=== PATIENT | male | born 1985 | race Caucasian/White ===

== ENCOUNTER 2016-12-08 05:45 | Day surgery (SDC) | payer BC ==
[2016-12-07 09:52] LABS: ABSOLUTE BASOPHILS # (AUTO) 0.1 10^3/uL (0.0-0.2); ABSOLUTE EOSINOPHILS # (AUTO) 0.2 10^3/uL (0.0-0.6); ABSOLUTE LYMPHOCYTES (AUTO) 1.9 10^3/uL (0.5-4.7); ABSOLUTE MONOCYTES (AUTO) 0.5 10^3/uL (0.1-1.4); ABSOLUTE NEUT (AUTO) 6.3 10^3/uL (1.7-8.2); BASOPHILS % (AUTO) 0.7 % (0-2); EOSINOPHILS % (AUTO) 2.5 % (0-6); HEMATOCRIT 42.4 % (37.9-51.0); HEMOGLOBIN 14.5 g/dL (13.5-17.0); HGB HCT DIFFERENCE 1.1; LYMPHOCYTES % (AUTO) 21.3 % (13-45); MEAN CORPUSCULAR HGB CONC 34.1 g/dL (32.0-36.0); MEAN CORPUSCULAR VOLUME 82 fl (80-97); MONOCYTES % (AUTO) 5.9 % (3-13); RED BLOOD COUNT 5.17 10^6/uL (4.35-5.55); RED CELL DISTRIBUTION WIDTH 14.3 % (11.5-14.0); SEGMENTED NEUTROPHILS % (AUTO) 69.6 % (42-78)
[2016-12-07 10:02] LABS: APPEARANCE,URINE CLEAR; BILIRUBIN,URINE NEGATIVE (NEGATIVE); GLUCOSE, URINE NEGATIVE (NEGATIVE); KETONES,URINE NEGATIVE (NEGATIVE); LEUKOCYTE ESTERASE,URINE NEGATIVE (NEGATIVE); NITRITE,URINE NEGATIVE (NEGATIVE); PROTEIN,URINE NEGATIVE (NEGATIVE); URINE SPECIFIC GRAVITY 1.023; UROBILINOGEN,URINE NEGATIVE mg/dL (<2.0)
[2016-12-07 10:11] LABS: ANION GAP 11 (5-19); BLOOD UREA NITROGEN 16 mg/dL (7-20); CALCIUM 9.9 mg/dL (8.4-10.2); CARBON DIOXIDE 27 mmol/L (22-30); CHLORIDE 104 mmol/L (98-107); GLUCOSE 180 mg/dL (75-110); POTASSIUM 4.2 mmol/L (3.6-5.0); SODIUM 142.4 mmol/L (137-145)
--- NOTE | 2016-12-07 10:46 | EKG REPORT ---
SEVERITY:- ABNORMAL ECG - SINUS RHYTHM IVCD, CONSIDER ATYPICAL RBBB : Confirmed by: Jarad Gotti 07-Dec-2016 10:46:06
[~2016-12-08 05:45] MED LIST: BETAMET ACET/BETAMET NA INJ 6 MG/1 ML ID PRN; CEFAZOLIN 2 GM/D5W RTU 2 GM/50 ML RTUPB IV PRN; CEFAZOLIN INJ 1 GM VIAL IV PRN; LACTATED RINGERS 1000 ML IV PRN; LIDOCAINE 0.5% INJ-PF (5 MG/ML) 50 ML SDV SUBCUT PRN
[2016-12-08] MEDS ORDERED: BUPIVACAINE HCL 0.5 % INJ/PF 30 ML SDV ONE (06:44)
[2016-12-08] MEDS ORDERED: LIDOCAINE 1% INJ-PF (10 MG/ML) 30 ML SDV ONE (07:18)
[2016-12-08] MEDS ORDERED: KETAMINE HCL INJ 500 MG/10 ML VIAL ONE (07:32)
[2016-12-08] MEDS ORDERED: FENTANYL CITRATE INJ/PF 100 MCG/2 ML AMPUL ONE (07:32)
[2016-12-08] MEDS ORDERED: MIDAZOLAM 2 MG/2 ML INJ ONE (07:32)
[2016-12-08] MEDS ORDERED: PROPOFOL INJ 200 MG/20 ML VIAL IV ONE (07:33)
[2016-12-08] MEDS ORDERED: OXYCODONE-ACETAMINOPHEN 5-325 MG TABLET PO PRN (08:28)
[2016-12-08] MEDS ORDERED: ONDANSETRON HCL INJ/PF 4 MG/2 ML SDV IV PRN (08:28)
--- NOTE | 2016-12-08 08:28 | Operative Report ---
Operative Report DATE OF SURGERY: 12/08/16 PREOPERATIVE DIAGNOSIS: Bilateral Carpal Tunnel Syndrome POSTOPERATIVE DIAGNOSIS: Same OPERATION: Left Endoscopic Carpal Tunnel Release, Right Carpal Tunnel Injection SURGEON: DEBBY GARCIA ANESTHESIA: LMAC COMPLICATIONS: None ESTIMATED BLOOD LOSS: Minimal PROCEDURE: Indication for above procedure: 31-year-old male with complaints of numbness and tingling in bilateral upper extremities. His neurodiagnostic testing demonstrating bilateral carpal tunnel syndrome. He followed up at my office at which point we discussed treatment options and the joint decision was made to proceed with left carpal tunnel release with right carpal tunnel injection. Risks and benefits were explained to the patient who verbalized understanding consented for the procedure. Procedure In Detail: Patient was seen and evaluated in the preoperative holding area. The LEFT upper extremity was initialized and marked. Patient received Ancef IV for bacterial prophylaxis. Patient was taken back to the operative room where transferred operative table. Patient was then placed under MAC anesthesia. Once adequately anesthetized, a nonsterile tourniquet was placed on the upper extremity. A surgical team debriefing was performed ensuring all instrumentation was available, the surgical procedure was discussed with possible concerns reviewed. Skin was prepped with alcohol a 50:50 10 mL mixture of 1% lidocaine and 0.5% Marcaine plain was injected locally and w/in carpal canal. The upper extremity was prepped with chlorhexidine and alcohol and draped in a sterile fashion. A timeout was done identifying correct patient, procedure and extremity everyone in attendance agree with this and verbalized no concerns.The extremity was then exsanguinated the tourniquet was inflated to 250 mmHg. A transverse skin incision was made just proximal to the wrist flexion crease ulnar to the palmaris longus. Blunt dissection was performed down to the palmaris longus tendon which was retracted radially. Deep to the palmaris longus tendon was the volar carpal ligament this was incised identifying the median nerve deep. With the use of a Grygla elevator any soft tissue was freed from the undersurface of the distal transverse carpal ligament. The hook of hamate was identified ulnarly. The ConMed cannulas were then introduced beginning with #1 progressing to a #3 gently dilating the carpal canal. I then introduced the scope within the cannula and identified transverse carpal ligament ensuring the median nerve was not visualized within the cannula. I triangulated distally with a 25-gauge needle identifying the distal aspect of the transverse carpal ligament, to ensure protection of the superficial palmar arch. The arthroscopic knife was used to incise the transverse carpal ligament under direct visualization with the arthroscopic camera. Any excess transverse fibers that remained after the first past were carefully released with a repeat pass. The median nerve was then directly visualized radially without disruption. Once this was completed I placed the #3 dilator and assured I got complete release of the transverse carpal ligament without residual compression. The median nerve was directly visualized and free of any overlying compression. I then turned my attention to release of the volar antebrachial fascia proximally. Once again a Grygla was used to open the wound and I proceeded with cannula #1 to #3. The arthroscope was introduced into the cannula and under direct visualization the volar antebrachial fascia was released. Once this was complete I copiusly irrigated the wound with normal saline. The skin incision was closed with 4-0 Monocryl subcutaneous and a running subcuticular 4-0 Monocryl. This was reinforced with Dermabond and Steri -Strips. Sterile, 4 x 4's and a Xu bandage was placed loosely. The right wrist was prepped with alcohol. A mixture of 1 mL of 6 mg Celestone and 1 mL of 0.5% Marcaine was injected within the right carpal tunnel. Sponge counts, instrument counts and needle counts were correct. The was no intraoperative complications patient tolerated the procedure well and was stable to PACU.
[2016-12-08] MEDS ORDERED: MORPHINE SULFATE 10 MG/ML INJ IV PRN (09:23)
[2016-12-08] MEDS ORDERED: PROMETHAZINE HCL INJ 25 MG/1 ML VIAL IV PRN (09:24)
[2016-12-08 11:09] VITALS: BP 114/63
[2016-12-08] MEDS ORDERED: LIDOCAINE 2% INJ-PF (20 MG/ML) 10 ML AMPUL ONE (14:09)
[2016-12-08] MEDS ORDERED: METOCLOPRAMIDE HCL INJ/PF 10 MG/2 ML SDV ONE (14:09)
[2016-12-08] MEDS ORDERED: ONDANSETRON HCL INJ/PF 4 MG/2 ML SDV ONE (14:09)
[2016-12-08] MEDS ORDERED: GLYCOPYRROLATE INJ 0.4 MG/2 ML VIAL ONE (14:09)
--- NOTE | 2016-12-11 07:14 | PDOC DISCHARGE SUMMARY ---
Discharge Summary (SDC) - Discharge Final Diagnosis: Bilateral Carpal Tunnel Syndrome Date of Surgery: 12/08/16 Discharge Date: 12/08/16 Condition: Good Treatment or Instructions: Schedule Follow Up w/ Dr. Chad Moore @ [facility] for Surgery to be seen in 10-14 days or as scheduled [place]: [place]: [place]: May remove dressing on postop day #3, keep incision covered and dry. Ice and elevate May begin finger range of motion attempting to make full fist. Stool softener of choice when on pain medication. Prescriptions: Hydrocodone/Acetaminophen [[place] 5-325 Tablet] 1 each PO Q6 PRN #15 tablet PRN Reason: Discharge Diet: As Tolerated Respiratory Treatments at Home: Deep Breathing/Coughing Discharge Activity: No Lifting Over 10 Pounds, No Lifting/Push/Pulling Report the Following to Your Physician Immediately: Fever over 101 Degrees, Unusual Bleeding, Swelling, Warmth, Increased Soreness, Numbness, Tingling Sensation
== END 2016-12-08 10:20 | disposition home or self-care (01) ==
LOC: OROUT 05:45
PROVIDERS: ATTEND Orthopaedic Surgery
PROC: 3E0T33Z Introduction of Anti-inflammatory into Peripheral Nerves and Plexi, Percutaneous Approach (ICD-10-PCS; 2016-12-08)
PROC: 3E0T3BZ Introduction of Anesthetic Agent into Peripheral Nerves and Plexi, Percutaneous Approach (ICD-10-PCS; 2016-12-08)
PROC: 01N54ZZ Release Median Nerve, Percutaneous Endoscopic Approach (ICD-10-PCS; principal; 2016-12-08 07:45)
DX: G56.01 Carpal tunnel syndrome, right upper limb (principal); G56.02 Carpal tunnel syndrome, left upper limb; K21.0 Gastro-esophageal reflux disease with esophagitis; G47.30 Sleep apnea, unspecified; Z79.899 Other long term (current) drug therapy; Z87.891 Personal history of nicotine dependence
CPT/HCPCS: 93005; 36415; 85025; 80048; 81001; 71020; 93010; 29848; 20526; J2250; J3010; J3490 ×3; J2765; J0702; J2405; J2704; J0690; 1810

== ENCOUNTER 2017-10-07 09:43 | Emergency (ER) | payer BC ==
--- NOTE | 2017-10-07 10:16 | ER Document Report ---
ED General - General Chief Complaint: Chest Pain > 30 Stated Complaint: CHEST PAIN Time Seen by Provider: 10/07/17 10:04 Mode of Arrival: Ambulatory Information source: Patient Notes: 32 yr old male presents with complaints of chest pain , heart racing. Pt notes he was following up with his pcp for his htn, was on lisinopril and they went higher on the dose, but while there his O2 sat was 91%, he took some breaths and it went to 96%, pt denies any sob. pt notes he was placed on steroids and inhaler, today he notes that he had sudden sharp pain in his chest, denies any sob, notes the pain is now a dull ache. pt denies any dvt risk factors , notes that his grandfather did have blood clots but only after surgery. TRAVEL OUTSIDE OF THE [place] IN LAST 30 DAYS: No - HPI Onset: Just prior to arrival Onset/Duration: Sudden Quality of pain: Achy, Sharp Severity: Mild Pain Level: 1 Associated symptoms: Chest pain, Shortness of breath Exacerbated by: Denies Relieved by: Denies Similar symptoms previously: Yes Recently seen / treated by doctor: Yes - Related Data Allergies/Adverse Reactions: No Known Allergies Allergy (Verified 10/07/17 09:46) Past Medical History - Social History Smoking Status: Former Smoker Cigarette use (# per day): No Chew tobacco use (# tins/day): No Smoking Education Provided: No Frequency of alcohol use: Rare Drug Abuse: None Family History: Other - grandfather dvt Patient has suicidal ideation: No Patient has homicidal ideation: No - Past Medical History Cardiac Medical History: Denies: Hx Coronary Artery Disease, Hx Heart Attack, Hx Hypertension Pulmonary Medical History: Denies: Hx Asthma, Hx Bronchitis, Hx COPD, Hx Pneumonia Neurological Medical History: Denies: Hx Cerebrovascular Accident, Hx Seizures Renal/ Medical History: Denies: Hx Peritoneal Dialysis Musculoskeltal Medical History: Reports Hx Arthritis - RIGHT SHOULDER - Immunizations Hx Diphtheria, Pertussis, Tetanus Vaccination: Yes - 2010 Review of Systems - Review of Systems Notes: REVIEW OF SYSTEMS: CONSTITUTIONAL : Denies fever, chills, or sweats. Denies recent illness. EENT: Denies eye, ear, throat, or mouth pain or symptoms. Denies nasal or sinus congestion or discharge. Denies throat, tongue, or mouth swelling or difficulty swallowing. CARDIOVASCULAR: admits to chest pain RESPIRATORY: admits ot sob GASTROINTESTINAL: Denies abdominal pain or distention. Denies nausea, vomiting , or diarrhea. Denies blood in vomitus, stools, or per rectum. Denies black, tarry stools. Denies constipation. GENITOURINARY: Denies difficulty urinating, painful urination, burning, frequency, blood in urine, or discharge. MUSCULOSKELETAL: Denies back or neck pain or stiffness. Denies joint pain or swelling. SKIN: Denies rash, lesions or sores. HEMATOLOGIC : Denies easy bruising or bleeding. LYMPHATIC: Denies swollen, enlarged glands. NEUROLOGICAL: Denies confusion or altered mental status. Denies passing out or loss of consciousness. Denies dizziness or lightheadedness. Denies headache. Denies weakness or paralysis or loss of use of either side. Denies problems with gait or speech. Denies sensory loss, numbness, or tingling. Denies seizures. PSYCHIATRIC: Denies anxiety or stress. Denies depression, suicidal ideation, or homicidal ideation. ALL OTHER SYSTEMS REVIEWED AND NEGATIVE. Dictation was performed using [employer] voice recognition software PHYSICAL EXAMINATION: GENERAL: Well-appearing, obese male and in no acute distress. HEAD: Atraumatic, normocephalic. EYES: Pupils equal round and reactive to light, extraocular movements intact, sclera anicteric, conjunctiva are normal. ENT: Nares patent, oropharynx clear without exudates. Moist mucous membranes. NECK: Normal range of motion, supple without lymphadenopathy LUNGS: Breath sounds clear to auscultation bilaterally and equal. No wheezes rales or rhonchi. HEART: Regular rate and rhythm without murmurs ABDOMEN: Soft, nontender, nondistended abdomen. No guarding, no rebound. No masses appreciated. Musculoskeletal: Normal range of motion, no pitting or edema. No cyanosis. NEUROLOGICAL: Cranial nerves grossly intact. Normal speech, normal gait. Normal sensory, motor exams PSYCH: Normal mood, normal affect. SKIN: Warm, Dry, normal turgor, no rashes or lesions noted. Physical Exam - Vital signs Vitals: Temp Pulse Resp BP Pulse Ox 97.8 F 70 22 H 153/75 H 97 10/07/17 10:01 10/07/17 10:01 10/07/17 10:10/07/17 10:10/07/17 10:01 Course - Re-evaluation Re-evalutation: 10/07/17 10:21 pts examination is quite benign, i have low suspicion for dvt or pe. labs pending 10/07/17 11:15 Patient's workup was negative, he is completely pain-free, he has no symptoms concerning for an PA at this time, nonetheless I will give him follow-up with Dr. Fuentes cardiology for reevaluation. I have made it very clear that while I do not have any life-threatening issues that I see at this time symptoms can always change, patient must follow-up or return immediately if there are any other concerns After performing a Medical Screening Examination, I estimate there is LOW risk for RUPTURED ESOPHAGUS, PNEUMOTHORAX, PULMONARY EMBOLISM, ACUTE CORONARY SYNDROME, OR THORACIC AORTIC DISSECTION, thus I consider the discharge disposition reasonable. I have reevaluated this patient multiple times and no significant life threatening changes are noted. The patient and I have discussed the diagnosis and risks, and we agree with discharging home with close follow-up. We also discussed returning to the Emergency Department immediately if new or worsening symptoms occur. We have discussed the symptoms which are most concerning (e.g., bloody sputum, worsening pain or shortness of breath) that necessitate immediate return. - Vital Signs Vital signs: Temp Pulse Resp BP Pulse Ox 97.7 F 63 20 141/61 H 98 10/07/17 11:14 10/07/17 11:14 10/07/17 11:14 10/07/17 11:14 10/07/17 11:14 - Laboratory Result Diagrams: 10/07/17 10:21 10/07/17 10:21 Laboratory results interpreted by me: 10/07/17 10/07/17 10:21 10:21 WBC 10.6 H Hgb 13.3 L RDW 15.1 H Glucose 141 H Creatine Kinase 327 H Total Protein 5.9 L Discharge - Discharge Clinical Impression: Chest pain Qualifiers: Chest pain type: unspecified Qualified Code(s): R07.9 - Chest pain, unspecified HTN (hypertension) Qualifiers: Hypertension type: essential hypertension Qualified Code(s): I10 - Essential ( primary) hypertension Condition: Stable Instructions: High Blood Pressure ([facility]), Chest Pain of Unclear Cause ([facility]) Additional Instructions: Follow up with your physician tomorrow for further care or return to the ED IMMEDIATELY if symptoms worsen or new concerns occur. If you cannot afford to follow up with your primary care physician a list of low cost clinics have been provided at the end of your discharge papers as well.
[2017-10-07 10:36] LABS: ABSOLUTE BASOPHILS # (AUTO) 0.1 10^3/uL (0.0-0.2); ABSOLUTE EOSINOPHILS # (AUTO) 0.3 10^3/uL (0.0-0.6); ABSOLUTE LYMPHOCYTES (AUTO) 2.4 10^3/uL (0.5-4.7); ABSOLUTE MONOCYTES (AUTO) 0.7 10^3/uL (0.1-1.4); ABSOLUTE NEUT (AUTO) 7.2 10^3/uL (1.7-8.2); BASOPHILS % (AUTO) 0.8 % (0-2); EOSINOPHILS % (AUTO) 2.8 % (0-6); HEMOGLOBIN 13.3 g/dL (13.5-17.0); LYMPHOCYTES % (AUTO) 22.6 % (13-45); MEAN CORPUSCULAR HEMOGLOBIN 28.4 pg (27.0-33.4); MEAN CORPUSCULAR HGB CONC 34.2 g/dL (32.0-36.0); MEAN CORPUSCULAR VOLUME 83 fl (80-97); MONOCYTES % (AUTO) 6.3 % (3-13); PLATELET COUNT 213 10^3/uL (150-450); RED BLOOD COUNT 4.69 10^6/uL (4.35-5.55); RED CELL DISTRIBUTION WIDTH 15.1 % (11.5-14.0); SEGMENTED NEUTROPHILS % (AUTO) 67.5 % (42-78); TOTAL CELLS COUNTED % (AUTO) 100 %; WHITE BLOOD COUNT 10.6 10^3/uL (4.0-10.5)
[2017-10-07 10:57] LABS: ALANINE AMINOTRANSFERASE 51 U/L (21-72); ALBUMIN 3.7 g/dL (3.5-5.0); ALKALINE PHOSPHATASE 76 U/L (38-126); ANION GAP 9 (5-19); ASPARTATE AMINO TRANSFERASE 31 U/L (17-59); BILIRUBIN,DIRECT 0.4 mg/dL (0.0-0.4); BILIRUBIN,TOTAL 0.5 mg/dL (0.2-1.3); BLOOD UREA NITROGEN 13 mg/dL (7-20); CALCIUM 9.2 mg/dL (8.4-10.2); CARBON DIOXIDE 27 mmol/L (22-30); CHLORIDE 104 mmol/L (98-107); CREATINE KINASE 327 U/L (55-170); GLUCOSE 141 mg/dL (75-110); POTASSIUM 3.9 mmol/L (3.6-5.0); SODIUM 140.2 mmol/L (137-145); TOTAL PROTEIN 5.9 g/dL (6.3-8.2)
[2017-10-07 11:08] LABS: CREATINE KINASE MB 3.64 ng/mL (<4.55)
[2017-10-07 11:09] LABS: TROPONIN I < 0.012 ng/mL
[2017-10-07 11:16] VITALS: BP 141/61
--- NOTE | 2017-10-07 13:25 | EKG REPORT ---
SEVERITY:- ABNORMAL ECG - SINUS RHYTHM IVCD, CONSIDER ATYPICAL RBBB : Confirmed by: Carlos Albarran MD 07-Oct-2017 13:24:43
== END 2017-10-07 11:19 | disposition home or self-care (01) ==
LOC: ER 09:43
DX: R07.9 Chest pain, unspecified (principal); I10 Essential (primary) hypertension; R06.02 Shortness of breath; Z87.891 Personal history of nicotine dependence
CPT/HCPCS: 36415; 80053; 82550; 82553; 84484; 85025; 85379; 93005; 93010; 99285

== ENCOUNTER 2018-01-29 16:49 | Emergency (ER) | payer BC ==
[2018-01-29] MEDS ORDERED: NORMAL SALINE 1000 ML 1,000 ML IV ONE (17:13)
--- NOTE | 2018-01-29 17:14 | ER Document Report ---
ED Medical Screen (RME) - General Chief Complaint: Headache Stated Complaint: HEADACHE,DIZZY,NAUSEA Time Seen by Provider: 01/29/18 17:05 Notes: 32-year-old male to the ER complaining of dizziness. Feels like he might be having a heat stroke. Patient was out in sun all day long. Thought that he was staying well-hydrated but began to sweat profusely towards the end of the day. 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 Drinks several bottles of water. Had some sports drinks as well but then began to feel chills and not feeling well. [place] like he was going to pass out. Denied any chest pain or shortness of breath. No abdominal pain. No fever. I have greeted and performed a rapid initial assessment of this patient. A comprehensive ED assessment and evaluation of the patient, analysis of test results and completion of the medical decision making process will be conducted by additional ED providers. TRAVEL OUTSIDE OF THE [place] IN LAST 30 DAYS: No - HPI Onset: Just prior to arrival - Related Data Allergies/Adverse Reactions: No Known Allergies Allergy (Verified 10/07/17 09:46) Past Medical History - General Information source: Patient - Social History Chew tobacco use (# tins/day): No Frequency of alcohol use: Rare Drug Abuse: None Lives with: Spouse/Significant other Family history: Reviewed & Not Pertinent - Past Medical History Cardiac Medical History: Reports: Hx Hypertension Denies: Hx Coronary Artery Disease, Hx Heart Attack Pulmonary Medical History: Denies: Hx Asthma, Hx Bronchitis, Hx COPD, Hx Pneumonia Neurological Medical History: Denies: Hx Cerebrovascular Accident, Hx Seizures Renal/ Medical History: Denies: Hx Peritoneal Dialysis Musculoskeltal Medical History: Reports Hx Arthritis - RIGHT SHOULDER - Immunizations Hx Diphtheria, Pertussis, Tetanus Vaccination: Yes - 2010 Review of Systems - Review of Systems Constitutional: Chills, Diaphoresis, Malaise, Weakness EENT: denies: Ear pain, Nose pain, Throat swelling Cardiovascular: Dizziness, Lightheaded. denies: Chest pain, Palpitations, Heart racing, Syncope, Edema Respiratory: denies: Cough, Hurts to breathe, Short of breath, Wheezing Gastrointestinal: denies: Abdominal pain, Vomiting Genitourinary: denies: Dysuria, Discharge, Flank pain, Hematuria Musculoskeletal: denies: Back pain, Joint pain, Muscle pain, Neck pain, Deformity Hematologic/Lymphatic: denies: Anemia, Blood clots, Easy bleeding, Easy bruising Neurological/Psychological: Weakness. denies: Confusion, Numbness Physical Exam - Vital signs Vitals: Temp Pulse Resp BP Pulse Ox 99.3 F 87 24 H 150/63 H 95 01/29/18 16:57 01/29/18 16:57 01/29/18 16:57 01/29/18 16:57 01/29/18 16:57 Interpretation: Normal - Notes Notes: Morbidly obese 208 kg male - General General appearance: Appears well, Alert - HEENT Head: Normocephalic, Atraumatic Eyes: Normal Pupils: PERRL Mucous membranes: Dry - Respiratory Respiratory status: No respiratory distress Chest status: Nontender Breath sounds: Normal Chest palpation: Normal - Cardiovascular Rhythm: Regular Heart sounds: Normal auscultation Murmur: No - Abdominal Inspection: Normal Distension: No distension Bowel sounds: Normal Tenderness: Nontender Organomegaly: No organomegaly - Back Back: Normal, Nontender - Extremities General upper extremity: Normal inspection, Nontender, Normal color, Normal ROM , Normal temperature General lower extremity: Normal inspection, Nontender, Normal color, Normal ROM , Normal temperature, Normal weight bearing. No: Jose's sign - Neurological Neuro grossly intact: Yes Cognition: Normal Orientation: AAOx4 Tom Coma Scale Eye Opening: Spontaneous [place] Coma Scale Verbal: Oriented Tom Coma Scale Motor: Obeys Commands Tom Coma Scale Total: 15 Speech: Normal Motor strength normal: LUE, RUE, LLE, RLE Sensory: Normal - Psychological Associated symptoms: Normal affect, Normal mood - Skin Skin Temperature: Warm Skin Moisture: Dry Skin Color: Normal Course - Re-evaluation Re-evalutation: 01/29/18 17:32 At this time could represent mild heat related injury. Does have slight dry buccal mucosa. Will get some basic labs, IV and give some IV fluids and reassess. - Vital Signs Vital signs: Temp Pulse Resp BP Pulse Ox 99.3 F 87 24 H 150/63 H 95 01/29/18 16:57 01/29/18 16:57 01/29/18 17:04 01/29/18 16:57 01/29/18 16:57 Doctor's Discharge - Discharge Referrals: LETTY,JEANINE, PA-C [Primary Care Provider] - Follow up as needed
[2018-01-29 17:58] LABS: APPEARANCE,URINE CLEAR; BILIRUBIN,URINE NEGATIVE (NEGATIVE); COLOR,URINE YELLOW; GLUCOSE, URINE NEGATIVE (NEGATIVE); KETONES,URINE NEGATIVE (NEGATIVE); LEUKOCYTE ESTERASE,URINE NEGATIVE (NEGATIVE); NITRITE,URINE NEGATIVE (NEGATIVE); PROTEIN,URINE NEGATIVE (NEGATIVE); URINE SPECIFIC GRAVITY 1.017; UROBILINOGEN,URINE NEGATIVE mg/dL (<2.0)
[2018-01-29 18:20] LABS: ABSOLUTE BASOPHILS # (AUTO) 0.1 10^3/uL (0.0-0.2); ABSOLUTE EOSINOPHILS # (AUTO) 0.2 10^3/uL (0.0-0.6); ABSOLUTE MONOCYTES (AUTO) 0.9 10^3/uL (0.1-1.4); ABSOLUTE NEUT (AUTO) 8.6 10^3/uL (1.7-8.2); BASOPHILS % (AUTO) 0.7 % (0-2); EOSINOPHILS % (AUTO) 1.8 % (0-6); HEMATOCRIT 40.6 % (37.9-51.0); HEMOGLOBIN 13.5 g/dL (13.5-17.0); LYMPHOCYTES % (AUTO) 17.1 % (13-45); MEAN CORPUSCULAR HEMOGLOBIN 27.8 pg (27.0-33.4); MEAN CORPUSCULAR HGB CONC 33.2 g/dL (32.0-36.0); MEAN CORPUSCULAR VOLUME 84 fl (80-97); MONOCYTES % (AUTO) 7.3 % (3-13); PLATELET COUNT 229 10^3/uL (150-450); RED BLOOD COUNT 4.85 10^6/uL (4.35-5.55); RED CELL DISTRIBUTION WIDTH 15.1 % (11.5-14.0); SEGMENTED NEUTROPHILS % (AUTO) 73.1 % (42-78); TOTAL CELLS COUNTED % (AUTO) 100 %; WHITE BLOOD COUNT 11.7 10^3/uL (4.0-10.5)
[2018-01-29] MEDS ORDERED: METOCLOPRAMIDE HCL INJ/PF 10 MG/2 ML SDV IV ONE (18:26)
[2018-01-29 18:28] LABS: ALANINE AMINOTRANSFERASE 51 U/L (21-72); ALBUMIN 3.7 g/dL (3.5-5.0); ALKALINE PHOSPHATASE 64 U/L (38-126); ANION GAP 11 (5-19); ASPARTATE AMINO TRANSFERASE 34 U/L (17-59); BILIRUBIN,DIRECT 0.3 mg/dL (0.0-0.4); BILIRUBIN,TOTAL 0.5 mg/dL (0.2-1.3); BLOOD UREA NITROGEN 16 mg/dL (7-20); CALCIUM 9.4 mg/dL (8.4-10.2); CARBON DIOXIDE 26 mmol/L (22-30); CHLORIDE 102 mmol/L (98-107); GLUCOSE 96 mg/dL (75-110); POTASSIUM 4.2 mmol/L (3.6-5.0); SODIUM 139.3 mmol/L (137-145)
--- NOTE | 2018-01-29 18:37 | ER Document Report ---
ED General - General Chief Complaint: Headache Stated Complaint: HEADACHE,DIZZY,NAUSEA Time Seen by Provider: 01/29/18 17:05 Notes: The patient is a 32-year-old male with history of morbid obesity, sleep apnea and hypertension who presents after becoming lightheaded, presyncopal, diaphoretic and cold after being out in the sun for approximately 8 hours a day. Patient states that he had been trying to drink plenty of water and sports drinks but continued to feel like he was getting progressively more dehydrated. After he got home he tried to cool off with a fan but continued to feel weak, have progressively worsening muscle aches, and then began to develop a dull, throbbing, bitemporal headache that has become progressively worse since that time. He did take ibuprofen with some improvement of his symptoms. He did not note anything worsens his symptoms. He denies history of similar symptoms in the past. He has not seen his general doctor regarding today's concerns. He denies any chest pain, shortness of breath, focal weakness or numbness, confusion or vomiting. At the time of my assessment, he states he overall feels much better. TRAVEL OUTSIDE OF THE [place] IN LAST 30 DAYS: No - Related Data Allergies/Adverse Reactions: No Known Allergies Allergy (Verified 10/07/17 09:46) Past Medical History - General Information source: Patient - Social History Smoking Status: Never Smoker Chew tobacco use (# tins/day): No Frequency of alcohol use: Rare Drug Abuse: None Lives with: Spouse/Significant other Family History: Reviewed & Not Pertinent, Other - grandfather dvt Patient has suicidal ideation: No Patient has homicidal ideation: No - Past Medical History Cardiac Medical History: Reports: Hx Hypertension Denies: Hx Coronary Artery Disease, Hx Heart Attack Pulmonary Medical History: Denies: Hx Asthma, Hx Bronchitis, Hx COPD, Hx Pneumonia Neurological Medical History: Denies: Hx Cerebrovascular Accident, Hx Seizures Renal/ Medical History: Denies: Hx Peritoneal Dialysis Musculoskeltal Medical History: Reports Hx Arthritis - RIGHT SHOULDER - Immunizations Hx Diphtheria, Pertussis, Tetanus Vaccination: Yes - 2010 Review of Systems - Review of Systems Notes: Constitutional: Positive for myalgias and chills HENT: Negative for sore throat. Eyes: Negative for visual changes. Cardiovascular: Negative for chest pain. Respiratory: Negative for shortness of breath. Gastrointestinal: Negative for abdominal pain, vomiting or diarrhea. Genitourinary: Negative for dysuria. Musculoskeletal: Negative for back pain. Skin: Negative for rash. Neurological: Positive for headache 10 point ROS negative except as marked above and in HPI. Physical Exam - Vital signs Vitals: Temp Pulse Resp BP Pulse Ox 99.3 F 87 24 H 150/63 H 95 01/29/18 16:57 01/29/18 16:57 01/29/18 16:57 01/29/18 16:57 01/29/18 16:57 Interpretation: Hypertensive, Tachypneic - Resolved at the time of my assessment Notes: PHYSICAL EXAMINATION: GENERAL: Morbidly obese male, well-appearing, well-nourished and in no acute distress. HEAD: Atraumatic, normocephalic. EYES: Pupils equal round and reactive to light, extraocular movements intact, sclera anicteric, conjunctiva are normal. ENT: nares patent, oropharynx clear without exudates. Moderately dry mucous membranes. NECK: Normal range of motion, supple without lymphadenopathy LUNGS: Breath sounds clear to auscultation bilaterally and equal. No wheezes rales or rhonchi. HEART: Regular rate and rhythm without murmurs ABDOMEN: Soft, morbidly obese abdomen, nontender, normoactive bowel sounds. No guarding, no rebound. No masses appreciated. EXTREMITIES: Normal range of motion, no pitting or edema. No cyanosis. NEUROLOGICAL: No focal neurological deficits. Moves all extremities spontaneously and on command. PSYCH: Normal mood, normal affect. SKIN: Warm, Dry, normal turgor, no rashes or lesions noted. Course - Re-evaluation Re-evalutation: 01/29/18 18:37 Patient presents with probable dehydration in the setting of heat exposure with associated heat exhaustion. On examination he is otherwise nontoxic in appearance, vitals within normal limits with exception of baseline hypertension. The patient's labs are unremarkable without evidence of acute kidney injury, normal troponin. He has tolerated oral intake without any difficulty. He has had resolution of all the symptoms after receiving IV metoclopramide and IV fluids. Physical examination is otherwise unremarkable. I do not clinically suspect ACS, acute pulmonary embolus, dysrhythmia, TIA or CVA or any other alternative life-threatening pathology as the etiology of today 's presentation. At this time will discharge with return precautions and follow -up recommendations. Verbal discharge instructions given a the bedside and opportunity for questions given. Medication warnings reviewed. Patient is in agreement with this plan and has verbalized understanding of return precautions and the need for primary care follow-up in the next 24-72 hours. - Vital Signs Vital signs: Temp Pulse Resp BP Pulse Ox 99.3 F 87 24 H 150/63 H 95 01/29/18 16:57 01/29/18 16:57 01/29/18 17:04 01/29/18 16:57 01/29/18 16:57 - Laboratory Result Diagrams: 01/29/18 17:45 01/29/18 17:45 Laboratory results interpreted by me: 01/29/18 01/29/18 01/29/18 17:30 17:45 17:45 WBC 11.7 H RDW 15.1 H Absolute Neutrophils 8.6 H Total Protein 6.0 L Urine Ascorbic Acid 40 H Discharge - Discharge Clinical Impression: Dehydration Heat exhaustion Qualifiers: Encounter type: initial encounter Qualified Code(s): T67.5XXA - Heat exhaustion , unspecified, initial encounter Headache Qualifiers: Headache type: unspecified Headache chronicity pattern: acute headache Intractability: not intractable Qualified Code(s): R51 - Headache Condition: Good Disposition: HOME, SELF-CARE Additional Instructions: Your labs are normal today. Your symptoms are likely due to extensive heat exposure. Please rest tomorrow and avoid going back out in the heat for at least the next 24 hours. Continue to drink plenty of fluids. You should target your urine to be a light yellow to clear. Return if you develop chest pain, shortness of breath, weakness, numbness or persistent vomiting. Please also return if you develop any additional symptoms that are concerning to you. Referrals: JEANINE SAENZ PA-C [Primary Care Provider] - Follow up as needed
[2018-01-29 19:14] VITALS: BP 120/53
--- NOTE | 2018-01-30 00:14 | EKG REPORT ---
SEVERITY:- ABNORMAL ECG - SINUS RHYTHM IVCD, CONSIDER ATYPICAL RBBB BORDERLINE R WAVE PROGRESSION, ANTERIOR LEADS : Confirmed by: Carlos Albarran MD 30-Jan-2018 00:12:47
== END 2018-01-29 19:18 | disposition home or self-care (01) ==
LOC: ER 16:49
DX: T67.5XXA Heat exhaustion, unspecified, initial encounter (principal); E86.0 Dehydration; X30.XXXA Exposure to excessive natural heat, initial encounter; R55 Syncope and collapse; M79.1 Myalgia; R68.83 Chills (without fever); R51 Headache; R53.1 Weakness; I10 Essential (primary) hypertension; E66.01 Morbid (severe) obesity due to excess calories; Z68.44 Body mass index [BMI] 60.0-69.9, adult
CPT/HCPCS: 93005; 99284; 96361; 96374; 36415; 85025; 80053; 81001; 84484; 93010; J2765; J7030

== ENCOUNTER 2018-02-22 16:08 | Day surgery (SDC) | payer BC ==
[~2018-02-22 16:08] MED LIST changes: -BETAMET ACET/BETAMET NA INJ 6 MG/1 ML ID PRN; -CEFAZOLIN 2 GM/D5W RTU 2 GM/50 ML RTUPB IV PRN; -CEFAZOLIN INJ 1 GM VIAL IV PRN; +DIPHENHYDRAMINE HCL 50 MG/ML VIAL ONE; +EPINEPHRINE INJ 1 MG/10 ML DISP.SYRIN ONE; +FLUMAZENIL INJ 0.5 MG/5 ML VIAL ONE; +GLUCAGON,HUMAN RECOMB 1 MG INJ ONE; -LACTATED RINGERS 1000 ML IV PRN; -LIDOCAINE 0.5% INJ-PF (5 MG/ML) 50 ML SDV SUBCUT PRN; +MIDAZOLAM 2 MG/2 ML INJ ONE; +NALOXONE HCL INJ/PF 0.4 MG/1 ML SDV ONE; +ONDANSETRON HCL INJ/PF 4 MG/2 ML SDV ONE
[2018-02-22] MEDS: FENTANYL CITRATE INJ/PF 100 MCG/2 ML AMPUL ONE ×2 (18:45→18:48)
--- NOTE | 2018-02-22 19:02 | Operative Report ---
Operative Report DATE OF SURGERY: 02/22/18 Operative Report: Pre-op diagnosis: Reflux and nausea Post-op diagnosis: 1. Normal mucosa 2. Residual food in the stomach? Gastroparesis Surgery: Esophagogastroduodenoscopy with biopsy Medications: Versed 3mg Fentanyl 100mcg IV push Tissue removed: Antral and gastric body biopsy for pathology Procedure: After informed consent obtained from patient, the throat was sprayed with Hurricane and conscious sedation was achieved. The upper endoscope was inserted into the esophagus under direct vision and advanced into the stomach. The duodenum was entered and examined to the second part. Endoscope was then slowly pulled out of the patient as the mucosa was examined into details. Patient tolerated procedure well. Findings Esophagus: Normal Z-line at:40cm Antrum: Normal Body: There was some residual food in the body and fundus. Patient's last solid meal was about 10 hours ago. Fundus: Normal Duodenum first part: Normal Duodenum second part: Normal Plan: Await pathology. Eat smaller more frequent meals OPERATION: .
[2018-02-22 19:59] VITALS: BP 144/63
== END 2018-02-22 20:00 | disposition home or self-care (01) ==
LOC: END 16:08
PROVIDERS: ATTEND Internal Medicine Gastroenterology
PROC: 0DB68ZX Excision of Stomach, Via Natural or Artificial Opening Endoscopic, Diagnostic (ICD-10-PCS; principal; 2018-02-22 16:30)
DX: K21.9 Gastro-esophageal reflux disease without esophagitis (principal); R11.0 Nausea; I10 Essential (primary) hypertension; E66.01 Morbid (severe) obesity due to excess calories; Z68.44 Body mass index [BMI] 60.0-69.9, adult; K31.84 Gastroparesis
CPT/HCPCS: 43239 ×2; 88305 ×2; J2250; J3010; J0171; J1200; J1610; J2310; J2405; J3490

== ENCOUNTER → 2018-03-16 | Outpatient (CLI) | payer BC ==
--- NOTE | 2018-03-16 13:53 | RADIOLOGY REPORT (SQ) ---
EXAM DESCRIPTION: NM GASTRIC EMPTYING STUDY COMPLETED DATE/TIME: 03/16/2018 1:35 pm REASON FOR STUDY: GASTROPARESIS K31.84 GASTROPARESIS COMPARISON: None. RADIONUCLIDE AND DOSE: 2.14 millicuries Tc-99m Sulfur Colloid. A wide variety of solid foods have been used. The route of agent administration: Oral. TECHNIQUE: 1 minute serial static imaging performed at time of meal, 1 hour, 2 hours, 3 hours, and 4 hours as needed. Once stomach reaches 90% emptying, the test is complete. Image intensity values plo tted with respect to time with linear regression algorithm. LIMITATIONS: None. FINDINGS: Patient was observed for 4 hours. Immediate post meal serves as baseline. Gastric emptying at 60 minutes was 24%. Gastric emptying at 90 minutes was 35%. Gastric emptying at 120 minutes was 47% Gastric emptying at 180 minutes was 94% IMPRESSION: NORMAL GASTRIC EMPTYING. TECHNICAL DOCUMENTATION: JOB ID: [id number] [employer]- All Rights Reserved rev-12/31 Reading location - IP/workstation name: [email or web address]
== END ==
LOC: RAD 08:05
PROVIDERS: ATTEND Internal Medicine Gastroenterology
DX: K31.84 Gastroparesis (principal)
CPT/HCPCS: 78264; A9541

== ENCOUNTER 2018-08-27 16:39 | Inpatient (IN) | payer BC ==
--- NOTE | 2018-08-27 17:01 | ER Document Report ---
ED Medical Screen (RME) - General Chief Complaint: Breathing Difficulty Stated Complaint: SHORT OF BREATH, WEAKNESS Time Seen by Provider: 08/27/18 16:54 Notes: 33-year-old male patient reports onset Wednesday while working out in the cold, his lungs began burning and hurting. He uses inhalers without much improvement. He reports for the last 4 days he has felt short of breath, has dyspnea on exertion, has burning with deep breath. He also reports toes and fingers feeling cold. Saw his PCP yesterday, was told his lungs were clear and was prescribed prednisone. He does have a past medical history of reactive airways disease. Today he complains of primarily being short of breath, dizzy, feeling weak. He states he does not think he has had a fever. There is no coughing associated with this. His blood pressure is noted to be quite high today compared to his baseline. I have greeted and performed a rapid initial assessment of this patient. A comprehensive ED assessment and evaluation of the patient, analysis of test results and completion of the medical decision making process will be conducted by additional ED providers. TRAVEL OUTSIDE OF THE [place] IN LAST 30 DAYS: No - Related Data Allergies/Adverse Reactions: No Known Allergies Allergy (Verified 08/27/18 16:58) Past Medical History - Social History Chew tobacco use (# tins/day): No Frequency of alcohol use: Rare Drug Abuse: None Family history: Reviewed & Not Pertinent - Past Medical History Cardiac Medical History: Reports: Hx Hypertension - LISINOPRIL Denies: Hx Coronary Artery Disease, Hx Heart Attack Pulmonary Medical History: Reports: Hx Pneumonia - YRS AGO Denies: Hx Asthma, Hx COPD Comment Only: Hx Bronchitis - H/O FREQUENT BRONCHITIS Neurological Medical History: Denies: Hx Cerebrovascular Accident, Hx Seizures Renal/ Medical History: Denies: Hx Peritoneal Dialysis Musculoskeltal Medical History: Reports Hx Arthritis - R SHOULDER - Immunizations Hx Diphtheria, Pertussis, Tetanus Vaccination: Yes Physical Exam - Vital signs Vitals: Temp Pulse Resp BP Pulse Ox 98.1 F 81 26 H 168/72 H 94 08/27/18 16:45 08/27/18 16:45 08/27/18 16:45 08/27/18 16:45 08/27/18 16:45 Course - Vital Signs Vital signs: Temp Pulse Resp BP Pulse Ox 98.1 F 81 26 H 168/72 H 94 08/27/18 16:45 08/27/18 16:45 08/27/18 16:45 08/27/18 16:45 08/27/18 16:45 Doctor's Discharge - Discharge Referrals: MARLA LARA MD [Primary Care Provider] - Follow up as needed
--- NOTE | 2018-08-27 18:04 | RADIOLOGY REPORT (SQ) ---
EXAM DESCRIPTION: CHEST 2 VIEWS COMPLETED DATE/TIME: 08/27/2018 5:50 pm REASON FOR STUDY: SOB, burning on breathing, CAN COMPARISON: 03/04/2014 EXAM PARAMETERS: NUMBER OF VIEWS: two views TECHNIQUE: Digital Frontal and Lateral radiographic views of the chest acquired. RADIATION DOSE: NA LIMITATIONS: none FINDINGS: LUNGS AND PLEURA: No opacities, masses or pneumothorax. No pleural effusion. MEDIASTINUM AND HILAR STRUCTURES: No masses or contour abnormalities. HEART AND VASCULAR STRUCTURES: Heart normal size. No evidence for failure. BONES: No acute findings. HARDWARE: None in the chest. OTHER: No other significant finding. IMPRESSION: NO ACUTE RADIOGRAPHIC FINDING IN THE CHEST. TECHNICAL DOCUMENTATION: JOB ID: [id number] [employer], [employer]- All Rights Reserved Reading location - IP/workstation name: [email or web address]
[2018-08-27 18:28] LABS: ABSOLUTE EOSINOPHILS # (AUTO) 0.2 10^3/uL (0.0-0.6); ABSOLUTE LYMPHOCYTES (AUTO) 1.1 10^3/uL (0.5-4.7); ABSOLUTE MONOCYTES (AUTO) 0.6 10^3/uL (0.1-1.4); ABSOLUTE NEUT (AUTO) 11.5 10^3/uL (1.7-8.2); BASOPHILS % (AUTO) 0.3 % (0-2); EOSINOPHILS % (AUTO) 1.2 % (0-6); HEMOGLOBIN 13.3 g/dL (13.5-17.0); LYMPHOCYTES % (AUTO) 7.9 % (13-45); MEAN CORPUSCULAR HEMOGLOBIN 27.3 pg (27.0-33.4); MEAN CORPUSCULAR HGB CONC 33.2 g/dL (32.0-36.0); MEAN CORPUSCULAR VOLUME 82 fl (80-97); MONOCYTES % (AUTO) 4.1 % (3-13); PLATELET COUNT 239 10^3/uL (150-450); RED BLOOD COUNT 4.87 10^6/uL (4.35-5.55); RED CELL DISTRIBUTION WIDTH 15.5 % (11.5-14.0); SEGMENTED NEUTROPHILS % (AUTO) 86.5 % (42-78); TOTAL CELLS COUNTED % (AUTO) 100 %; WHITE BLOOD COUNT 13.4 10^3/uL (4.0-10.5)
[2018-08-27 18:30] LABS: VENOUS BLOOD BASE EXCESS 0.8 mmol/L; VENOUS BLOOD HCO3 26.8 mmol/L (20-32); VENOUS BLOOD PCO2 48.1 mmHg (35-63); VENOUS BLOOD PH 7.36 (7.30-7.42)
[2018-08-27 18:41] LABS: ALANINE AMINOTRANSFERASE 55 U/L (21-72); ALBUMIN 4.6 g/dL (3.5-5.0); ALKALINE PHOSPHATASE 105 U/L (38-126); ANION GAP 10 (5-19); ASPARTATE AMINO TRANSFERASE 36 U/L (17-59); BILIRUBIN,DIRECT 0.1 mg/dL (0.0-0.4); BILIRUBIN,TOTAL 0.6 mg/dL (0.2-1.3); BLOOD UREA NITROGEN 15 mg/dL (7-20); CALCIUM 10.1 mg/dL (8.4-10.2); CARBON DIOXIDE 24 mmol/L (22-30); CHLORIDE 105 mmol/L (98-107); CREATINE KINASE 362 U/L (55-170); GLUCOSE 121 mg/dL (75-110); POTASSIUM 4.9 mmol/L (3.6-5.0); SODIUM 139.2 mmol/L (137-145); TOTAL PROTEIN 7.4 g/dL (6.3-8.2)
[2018-08-27 18:50] LABS: CREATINE KINASE MB 2.21 ng/mL (<4.55)
--- NOTE | 2018-08-27 18:53 | ER Document Report ---
ED General - General Chief Complaint: Breathing Difficulty Stated Complaint: SHORT OF BREATH, WEAKNESS Time Seen by Provider: 08/27/18 16:54 Notes: Patient is a 33-year-old male with a past medical history of morbid obesity, hypertension, presents with 4 days of shortness of breath. Patient states that his symptoms started relatively abruptly several days ago, have been progressively worsening since that time. Reports any form of exertion dramatically worsens his shortness of breath. States that he has a history of reactive airway disease, was started on steroids by his primary care doctor yesterday but has not had any significant improvement. Denies any unilateral leg swelling but does note some mild tightness and pain to the left lower extremity that is been ongoing for the past 3-4 days. Denies any chest pain, does note some mild fullness to the left chest with breathing. No history of DVT or pulmonary embolus. No use of estrogen. TRAVEL OUTSIDE OF THE [place] IN LAST 30 DAYS: No - Related Data Allergies/Adverse Reactions: No Known Allergies Allergy (Verified 08/27/18 16:58) Past Medical History - General Information source: Patient - Social History Smoking Status: Former Smoker Chew tobacco use (# tins/day): No Frequency of alcohol use: Rare Drug Abuse: None Lives with: Spouse/Significant other Family History: Reviewed & Not Pertinent, Other Patient has suicidal ideation: No Patient has homicidal ideation: No - Past Medical History Cardiac Medical History: Reports: Hx Hypertension - LISINOPRIL Denies: Hx Coronary Artery Disease, Hx Heart Attack Pulmonary Medical History: Reports: Hx Pneumonia - YRS AGO Denies: Hx Asthma, Hx COPD Comment Only: Hx Bronchitis - H/O FREQUENT BRONCHITIS Neurological Medical History: Denies: Hx Cerebrovascular Accident, Hx Seizures Renal/ Medical History: Denies: Hx Peritoneal Dialysis Musculoskeletal Medical History: Reports Hx Arthritis - R SHOULDER - Immunizations Hx Diphtheria, Pertussis, Tetanus Vaccination: Yes Review of Systems - Review of Systems Notes: Constitutional: Negative for fever. HENT: Negative for sore throat. Eyes: Negative for visual changes. Cardiovascular: Negative for chest pain. Respiratory: Positive for shortness of breath. Gastrointestinal: Negative for abdominal pain, vomiting or diarrhea. Genitourinary: Negative for dysuria. Musculoskeletal: Positive for left leg pain Skin: Negative for rash. Neurological: Negative for headaches, weakness or numbness. 10 point ROS negative except as marked above and in HPI. Physical Exam - Vital signs Vitals: Temp Pulse Resp BP Pulse Ox 98.1 F 81 26 H 168/72 H 94 08/27/18 16:45 08/27/18 16:45 08/27/18 16:45 08/27/18 16:45 08/27/18 16:45 Interpretation: Hypertensive, Tachypneic Notes: PHYSICAL EXAMINATION: GENERAL: Well-appearing, well-nourished and in no acute distress. HEAD: Atraumatic, normocephalic. EYES: Pupils equal round and reactive to light, extraocular movements intact, sclera anicteric, conjunctiva are normal. ENT: nares patent, oropharynx clear without exudates. Moist mucous membranes. NECK: Normal range of motion, supple without lymphadenopathy LUNGS: Mild tachypnea, breath sounds clear to auscultation bilaterally and equa l. No wheezes rales or rhonchi. HEART: Regular rate and rhythm without murmurs ABDOMEN: Soft, morbidly obese abdomen, nontender, normoactive bowel sounds. No guarding, no rebound. No masses appreciated. EXTREMITIES: Normal range of motion, no pitting or edema. No cyanosis. NEUROLOGICAL: No focal neurological deficits. Moves all extremities spontaneously and on command. PSYCH: Normal mood, normal affect. SKIN: Warm, Dry, normal turgor, no rashes or lesions noted. Course - Re-evaluation Re-evalutation: 08/27/18 18:51 Patient is a 33-year-old male with morbid obesity, essential hypertension who presents with 4 days of burning when he breathes, intermittent coughing, symptoms worsened by cold air exposure with a known history of reactive airway disease. On exam the patient appears to have very mildly elevated work of breathing although no distress of any kind. Chest x-ray clear without any acute infiltrate or evidence of pneumothorax. Bedside echocardiogram without pericardial effusion, any evidence of regional wall motion abnormality. Patient has no bilateral or unilateral lower extremity edema. EKG unremarkable. He is PERC criteria negative for an acute pulmonary embolus. However this point I do not have an alternative reason for examination. The patient his and I have collectively elected to proceed with d-dimer assay testing. 08/27/18 20:06 The troponin did come back in the indeterminate range at 0.036. Certainly worrisome for a non-reactive airway disease presentation. The d-dimer has subsequently come back markedly elevated at 13. CTA of the chest is pending. Primary concern at this point would be for an acute PE versus possible coronary artery disease with exertional angina. 08/27/18 20:59 I was contacted by radiology and informed the patient does have bilateral pulmonary emboli. Lovenox 200 mg subcutaneous has been administered. - Vital Signs Vital signs: Temp Pulse Resp BP Pulse Ox 98.1 F 81 21 H 149/68 H 97 08/27/18 16:45 08/27/18 16:45 08/27/18 23:00 08/27/18 20:01 08/27/18 23:00 - Laboratory Result Diagrams: 08/27/18 18:00 08/27/18 18:00 Laboratory results interpreted by me: 08/27/18 08/27/18 08/27/18 18:00 18:00 18:00 WBC 13.4 H Hgb 13.3 L RDW 15.5 H Seg Neutrophils % 86.5 H Lymphocytes % 7.9 L Absolute Neutrophils 11.5 H D-Dimer 13.97 H Glucose 121 H Creatine Kinase 362 H - Diagnostic Test Radiology reviewed: Image reviewed, Reports reviewed Radiology results interpreted by me: 08/28/18 03:29 Chest x-ray: No acute infiltrate or pneumothorax 08/28/18 03:29 - EKG Interpretation by Me Additional EKG results interpreted by me: 08/28/18 03:30 Sinus rhythm, rate 70. No ST elevations or depressions. QTC is 441. Discharge - Discharge Clinical Impression: Bilateral pulmonary embolism, Pleuritic chest pain Dyspnea Qualifiers: Dyspnea type: dyspnea on exertion Qualified Code(s): R06.09 - Other forms of dyspnea
[2018-08-27 18:54] LABS: TROPONIN I 0.036 ng/mL
--- NOTE | 2018-08-27 21:03 | RADIOLOGY REPORT (SQ) ---
EXAM DESCRIPTION: CTA CHEST COMPLETED DATE/TIME: 08/27/2018 8:32 pm REASON FOR STUDY: sob, elevated d-dimer, eval pe COMPARISON: Same day chest radiograph TECHNIQUE: CT scan of the chest performed using helical scanning technique with dynamic intravenous contrast injection. Images reviewed with lung, soft tissue and bone windows. Reconstructed coronal and sagittal MPR images reviewed. Additional 3 dimensional post-processing performed to develop Maximal Intensity Projection images (TN P). All images stored on PACS. All CT scanners at this facility use dose modulation, iterative reconstruction, and/or weight based d osing when appropriate to reduce radiation dose to as low as reasonably achievable (ALARA). [facility]: Dose Right [facility]: CareDose [facility]: Dose Right [facility]: Teradose 4D [facility]: Lumicity CONTRAST TYPE AND DOSE: contrast/concentration: Isovue 350.00 mg/ml; Total Contrast Delivered: 100.0 ml; Total Saline Delivered: 70.0 ml 100 mL IV of Omnipaque 350- low osmolar. Suboptimal full timing of contrast bolus. RENAL FUNCTION: BUN 15 creatinine 0.93 RADIATION DOSE: CT Rad equipment meets quality standard of care and radiation dose reduction techniq ues were employed. CTDIvol: 11.7 - 105.5 mGy. DLP: 1906 mGy-cm. . LIMITATIONS: None. FINDINGS: LUNGS AND PLEURA:Small area of ground glass opacity of the right lower lobe with a cluster pulmonary nodules. . Otherwise, no focal consolidation, pleural effusion, pneumothorax. AORTA AND GREAT VESSELS: No aneurysm. Contrast bolus not optimized for the aorta. HEART: No pericardial effusion. No significant coronary artery calcifications. PULMONARY ARTERIES: Bilateral pulmonary emboli within the distal main pulmonary arteries extending in to multiple segmental pulmonary arteries of all lobes bilaterally. HILAR AND MEDIASTINAL STRUCTURES: No identified masses or abnormal nodes. HARDWARE: None in the chest. UPPER ABDOMEN: Indeterminate 2 cm partially exophytic lesion arising from the superior pole left kidn ey. Hepatic steatosis. Remainder of the visualized upper abdominal structures are normal. THYROID AND OTHER SOFT TISSUES: No masses. No adenopathy. BONES: No acute or significant finding. 3D MIPS: Confirm above findings. OTHER: No other significant finding. IMPRESSION: 1. Suboptimal timing of contrast. Large bilateral pulmonary emboli of both main pulmonary arteries e xtending into the segmental pulmonary arteries. 2. Small focal ground-glass opacity and clustered nodules of the right lower lobe which may represent superimposed pneumonia. Recommend continued follow-up to resolution. 3. Indeterminate left renal lesion. Nonemergent dedicated ultrasound can be obtained for further arvind racterization. 4. Hepatic steatosis. COMMENT: This report was called to SERGO GONZALEZ MD at20:54 on 08/27/2018. Quality ID # [id number]: Final reports with documentation of one or more dose reduction techniques (e.g., Au tomated exposure control, adjustment of the mA and/or kV according to patient size, use of iterative reconstruction technique) TECHNICAL DOCUMENTATION: JOB ID: [id number] [employer]- All Rights Reserved Reading location - IP/workstation name: [email or web address]
[2018-08-27] MEDS ORDERED: MAGNESIUM HYDROXIDE SUSP 30 ML UDCUP PO PRN (21:42)
[2018-08-27] MEDS ORDERED: ONDANSETRON HCL INJ/PF 4 MG/2 ML SDV IV PRN (21:42)
[2018-08-27] MEDS ORDERED: MAG HYDROX/AL HYDROX/SIMETH SUSP 30 ML UDCUP PO PRN (21:42)
[2018-08-27] MEDS ORDERED: ONDANSETRON 4 MG TAB.RAPDIS PO PRN (21:42)
[2018-08-27] MEDS ORDERED: ALBUTEROL SULFATE 0.083% NEB 2.5 MG/3 ML AMPUL NEB PRN (21:48)
[2018-08-27] MEDS ORDERED: LABETALOL HCL INJ 20 MG/4 ML DISP.SYRIN IV PRN (21:48)
[2018-08-27] MEDS ORDERED: MORPHINE SULFATE 10 MG/ML INJ IV PRN ×2 (21:48)
[2018-08-27] MEDS ORDERED: ACETAMINOPHEN 650 MG SUPP.RECT PR PRN (21:48)
[2018-08-27] MEDS ORDERED: ACETAMINOPHEN 325 MG TABLET PO PRN (21:48)
[2018-08-27] MEDS ORDERED: LEVALBUTEROL HCL NEB 1.25 MG/3 ML AMPUL NEB PRN (21:48)
[2018-08-27] MEDS ORDERED: APIXABAN 5 MG TABLET PO SCH (21:55)
[2018-08-27] MEDS ORDERED: ENOXAPARIN SODIUM INJ 150 MG/1 ML DISP.SYRIN SUBCUT SCH (22:00)
--- NOTE | 2018-08-27 22:00 | EKG REPORT ---
SEVERITY:- ABNORMAL ECG - SINUS RHYTHM IVCD, CONSIDER ATYPICAL RBBB : Confirmed by: Carlos Albarran MD 27-Aug-2018 21:59:14
[2018-08-27] MEDS ORDERED: METOCLOPRAMIDE HCL 10 MG TABLET PO ONE (22:15)
[2018-08-27] MEDS ORDERED: APIXABAN 5 MG TABLET PO ONE (22:15)
[2018-08-27] MEDS ORDERED: FAMOTIDINE 20 MG TABLET PO ONE (22:15)
[2018-08-27] MEDS ORDERED: BUDESONIDE NEB 0.5 MG/2 ML AMPUL NEB ONE (22:15)
[2018-08-27] MEDS ORDERED: SUCRALFATE SUSP 1 GM/10 ML UDCUP PO ONE (22:15)
[2018-08-27] MEDS: MORPHINE SULFATE 10 MG/ML INJ IV PRN (22:28)
[2018-08-28 00:39] LABS: CREATINE KINASE MB 1.86 ng/mL (<4.55); TROPONIN I 0.026 ng/mL
--- NOTE | 2018-08-28 00:54 | PDOC H&P ---
History of Present Illness Admission Date/PCP: POOJA WU Patient complains of: Dyspnea History of Present Illness: DINH ENGLAND is a 33 year old male presented to the emergency room with a 4-day history of progressively worsening dyspnea. He admits that approximately 4 days ago he began feeling short of breath and had increased dyspnea with exertion. He also admits intermittent, acute, short lived, mild to moderate central chest pain/burning sensation when taking a deep breath. The symptoms have persisted and gradually worsened to the point where he is having a difficult time doing even minimal activities of daily living due to severe dyspnea. His symptoms have been accompanied by lightheadedness/dizziness, generalized weakness and a sensation of cold fingers and toes. He used an albuterol inhaler with no improvement and also saw his primary care provider who gave him prednisone which has also not resulted in any improvement in his symptoms. He admits to similar prior episodes associated with his reactive airway disease but never this severe, lasting this long or failing to improve with treatment using inhalers and/or steroids. In the emergency room he was noted to be hypertensive and dyspneic on exertion without hypoxia. He was also noted to have a mildly elevated troponin and a positive d-dimer which upon investigation revealed bilateral pulmonary emboli. He denies fever and cough and does not have a history of recent extended travel or other activity that may have provoked a DVT/PE. He was started on Lovenox for PE therapy and is admitted for further evaluation and treatment. Past Medical History Cardiac Medical History: Reports: Hypertension - LISINOPRIL Denies: Coronary Artery Disease, DVT, Myocardial Infarction, Pulmonary Embolism Pulmonary Medical History: Reports: Pneumonia - As a child and teenager, Other - Reactive airway disease Denies: Asthma, Chronic Obstructive Pulmonary Disease (COPD) Comment Only: Bronchitis - H/O FREQUENT BRONCHITIS EENT Medical History: Reports: Eyes - Dry eyes/allergy eyes, Nose - Allergic rhinitis Neurological Medical History: Denies: Multiple Sclerosis, Seizures Endocrine Medical History: Reports: Obesity Denies: Diabetes Mellitus Type 1, Diabetes Mellitus Type 2, Hyperthyroidism, Hypothyroidism Renal/ Medical History: Denies: Chronic Kidney Disease, Nephrolithiasis Malignancy Medical History: Reports: None GI Medical History: Reports: Gastroesophageal Reflux Disease Denies: Cirrhosis, Hepatitis Musculoskeltal Medical History: Reports: Arthritis - R SHOULDER Denies: Gout Skin Medical History: Denies: Eczema, Psoriasis Psychiatric Medical History: Denies: Alcohol Dependency, Substance Abuse, Tobacco Dependency Traumatic Medical History: Reports: None Hematology: Denies: Anemia, Bleeding Tendencies Infectious Medical History: Reports: None Past Surgical History Past Surgical History: Reports: Orthopedic Surgery - Bilateral carpal tunnel release Social History Information Source: Patient Lives with: Spouse/Significant other Smoking Status: Former Smoker Frequency of Alcohol Use: Rare Hx Recreational Drug Use: No Drugs: None Hx Prescription Drug Abuse: No - Advance Directive Resuscitation Status: Full Code Surrogate healthcare decision maker:: Family History Family History: Hypertension Parental Family History Reviewed: Yes Children Family History Reviewed: No Sibling(s) Family History Reviewed.: Yes Medication/Allergy Home Medications: Cetirizine HCl [Zyrtec 10 mg Tablet] 1 tab PO DAILY 11/25/16 Cyclosporine 0.05% Oph Emulsio [Restasis 0.05% Oph Emulsion Pf 0.4 ml] 1 drop OU BID 11/25/16 Pantoprazole Sodium 40 mg PO DAILY 11/25/16 Magnesium 250 mg PO DAILY 12/04/16 Multivitamin [Daily Multiple Vitamin] 1 each PO DAILY 12/04/16 Lisinopril 20 mg PO DAILY 10/07/17 Albuterol Sulfate [Ventolin Hfa] 1 - 2 puff IH PRN PRN 02/21/18 Calcium Carbonate [Calcium] 500 mg PO DAILY 02/21/18 Fluticasone Propionate [Flonase Allergy Relief] 9.9 ml NS DAILY 02/21/18 Potassium 99 mg PO DAILY 02/21/18 Sertraline HCl [Zoloft 50 mg Tablet] DAILY 08/27/18 Allergies/Adverse Reactions: No Known Allergies Allergy (Verified 08/27/18 16:58) Review of Systems Constitutional: PRESENT: weakness. ABSENT: chills, fever(s) Eyes: ABSENT: visual disturbances, other - Ocular pain Ears: ABSENT: hearing changes, other - Ear pain Nose, Mouth, and Throat: ABSENT: mouth pain, sore throat Cardiovascular: PRESENT: as per HPI, chest pain, dyspnea on exertion. ABSENT: edema, orthropnea, palpitations Respiratory: PRESENT: as per HPI, dyspnea. ABSENT: cough Gastrointestinal: ABSENT: abdominal pain, constipation, diarrhea, nausea, vomiting Genitourinary: ABSENT: dysuria, hematuria Musculoskeletal: ABSENT: deformity, joint swelling Integumentary: ABSENT: pruritus, rash Neurological: ABSENT: confusion, convulsions, memory loss, tremor(s) Psychiatric: ABSENT: anxiety, depression Endocrine: ABSENT: cold intolerance, heat intolerance Hematologic/Lymphatic: ABSENT: easy bleeding, easy bruising Physical Exam Vital Signs: Temp Pulse Resp BP Pulse Ox 98.1 F 81 26 H 149/68 H 95 08/27/18 16:45 08/27/18 16:45 08/27/18 19:40 08/27/18 20:01 08/27/18 20:01 Intake & Output 08/25/18 08/26/18 08/27/18 23:59 23:59 23:59 Weight 206.3 kg General appearance: PRESENT: no acute distress, cooperative, morbidly obese Head exam: PRESENT: atraumatic, normocephalic Eye exam: PRESENT: conjunctiva pink, EOMI. ABSENT: scleral icterus Ear exam: PRESENT: normal external ear exam. ABSENT: bleeding, drainage Mouth exam: PRESENT: dry mucosa, neck supple Neck exam: ABSENT: JVD, thyromegaly, tracheal deviation Respiratory exam: PRESENT: clear to auscultation lissette, symmetrical, unlabored Cardiovascular exam: PRESENT: RRR. ABSENT: clicks, gallop, rubs Pulses: PRESENT: normal radial pulses, normal dorsalis pedis pul Vascular exam: PRESENT: normal capillary refill. ABSENT: pallor GI/Abdominal exam: PRESENT: normal bowel sounds, soft Rectal exam: PRESENT: deferred Extremities exam: ABSENT: joint swelling, pedal edema Musculoskeletal exam: ABSENT: deformity, dislocation Neurological exam: PRESENT: alert, oriented to person, oriented to place, oriented to time, oriented to situation, CN II-XII grossly intact. ABSENT: motor sensory deficit Psychiatric exam: PRESENT: appropriate affect, normal mood Skin exam: PRESENT: dry, intact, warm. ABSENT: jaundice, rash, urticaria Results Laboratory Results: 08/27/18 18:00 08/27/18 18:00 08/27/18 08/27/18 08/27/18 18:00 18:00 18:00 WBC 13.4 H RBC 4.87 Hgb 13.3 L Hct 40.0 MCV 82 MCH 27.3 MCHC 33.2 RDW 15.5 H Plt Count 239 Seg Neutrophils % 86.5 H Lymphocytes % 7.9 L Monocytes % 4.1 Eosinophils % 1.2 Basophils % 0.3 Absolute Neutrophils 11.5 H Absolute Lymphocytes 1.1 Absolute Monocytes 0.6 Absolute Eosinophils 0.2 Absolute Basophils 0.0 VBG pH 7.36 VBG pCO2 48.1 VBG HCO3 26.8 VBG Base Excess 0.8 Sodium 139.2 Potassium 4.9 Chloride 105 Carbon Dioxide 24 Anion Gap 10 BUN 15 Creatinine 0.93 Est GFR ( Amer) > 60 Est GFR (Non-Af Amer) > 60 Glucose 121 H Calcium 10.1 Total Bilirubin 0.6 AST 36 ALT 55 Alkaline Phosphatase 105 Total Protein 7.4 Albumin 4.6 08/27/18 08/27/18 18:00 18:00 Creatine Kinase 362 H CK-MB (CK-2) 2.21 Troponin I 0.036 Impressions: Chest X-Ray 08/27/18 16:58 IMPRESSION: NO ACUTE RADIOGRAPHIC FINDING IN THE CHEST. Chest/Abdomen CTA 08/27/18 20:03 IMPRESSION: 1. Suboptimal timing of contrast. Large bilateral pulmonary emboli of both main pulmonary arteries extending into the segmental pulmonary arteries. 2. Small focal ground-glass opacity and clustered nodules of the right lower lobe which may represent superimposed pneumonia. Recommend continued follow-up to resolution. 3. Indeterminate left renal lesion. Nonemergent dedicated ultrasound can be obtained for further characterization. 4. Hepatic steatosis. Assessment & Plan - Diagnosis (1) Bilateral pulmonary embolism Is this a current diagnosis for this admission?: Yes Plan: Patient will be initiated on anticoagulant therapy having received his first dose of Lovenox in the emergency room. Will be immediately started on Eliquis at pulmonary emboli dosages. His pulmonary status will be monitored throughout his hospital course and he will use morphine 2-4 milligrams IV every 2 hours as needed for pain via pain level sliding scale. (2) HTN (hypertension) Qualifiers: Hypertension type: essential hypertension Qualified Code(s): I10 - Essential (primary) hypertension Is this a current diagnosis for this admission?: Yes Plan: Patient be continued on his usual antihypertensive medications with adjustment as required during his hospital course. His metabolic profile and CBC will be monitored on a daily basis. (3) Morbid obesity with BMI of 60.0-69.9, adult Is this a current diagnosis for this admission?: Yes Plan: Dietary consultation for weight loss and lifestyle modification for overall improvement in health will be provided. (4) Reactive airway disease Qualifiers: Asthma severity: mild Asthma persistence: intermittent Asthma complication type: uncomplicated Qualified Code(s): J45.20 - Mild intermittent asthma, uncomplicated Is this a current diagnosis for this admission?: Yes Plan: Patient does have a history of reactive airway disease and is not currently on regular therapy. He may benefit from treatment with daily inhaled steroid therapy, this will be initiated utilizing Pulmicort nebulizers. Xopenex nebulizers on an as needed basis will be available. - Time Time Spent: 30 to 50 Minutes Critical Time spent with patient: Less than 15 minutes Medications reviewed and adjusted accordingly: Yes Anticipated discharge: Home Within: within 72 hours - Inpatient Certification Based on my medical assessment, after consideration of the patient's comorbidities, presenting symptoms, or acuity I expect that the services needed warrant INPATIENT care.: Yes I certify that my determination is in accordance with my understanding of Medicare's requirements for reasonable and necessary INPATIENT services [42 CFR 412.3e].: Yes Medical Necessity: Significant Comorbidiites Make Outpatient Treatment Too Risky, Need Close Monitoring Due to Risk of Patient Decompensation, Need For Continuous Telemetry Monitoring, Need for Nebulizer Therapy and Monitoring of Response, Risk of Complication if Not Cared For in Hospital
[2018-08-28 05:10] LABS: ABSOLUTE EOSINOPHILS # (AUTO) 0.3 10^3/uL (0.0-0.6); ABSOLUTE LYMPHOCYTES (AUTO) 1.9 10^3/uL (0.5-4.7); ABSOLUTE MONOCYTES (AUTO) 0.7 10^3/uL (0.1-1.4); ABSOLUTE NEUT (AUTO) 11.2 10^3/uL (1.7-8.2); BASOPHILS % (AUTO) 0.3 % (0-2); EOSINOPHILS % (AUTO) 2.1 % (0-6); HEMATOCRIT 38.2 % (37.9-51.0); HEMOGLOBIN 12.8 g/dL (13.5-17.0); LYMPHOCYTES % (AUTO) 13.5 % (13-45); MEAN CORPUSCULAR HEMOGLOBIN 27.4 pg (27.0-33.4); MEAN CORPUSCULAR HGB CONC 33.5 g/dL (32.0-36.0); MEAN CORPUSCULAR VOLUME 82 fl (80-97); PLATELET COUNT 234 10^3/uL (150-450); RED BLOOD COUNT 4.67 10^6/uL (4.35-5.55); RED CELL DISTRIBUTION WIDTH 15.5 % (11.5-14.0); SEGMENTED NEUTROPHILS % (AUTO) 79.1 % (42-78); TOTAL CELLS COUNTED % (AUTO) 100 %; WHITE BLOOD COUNT 14.1 10^3/uL (4.0-10.5)
[2018-08-28 05:31] LABS: ANION GAP 9 (5-19); BLOOD UREA NITROGEN 15 mg/dL (7-20); CALCIUM 9.4 mg/dL (8.4-10.2); CARBON DIOXIDE 25 mmol/L (22-30); CHLORIDE 106 mmol/L (98-107); CHOLESTEROL 143.96 mg/dL (0-200); GLUCOSE 194 mg/dL (75-110); POTASSIUM 4.3 mmol/L (3.6-5.0); SODIUM 139.6 mmol/L (137-145); TRIGLYCERIDES 149 mg/dL (<150)
[2018-08-28 05:41] LABS: DIRECT LDL 104 mg/dL (<100)
[2018-08-28 05:45] LABS: CREATINE KINASE MB 1.76 ng/mL (<4.55); TROPONIN I 0.026 ng/mL
[2018-08-28 05:52] LABS: FREE T3 3.15 pg/mL (2.77-5.27); FREE T4 (FREE THYROXINE) 1.17 ng/dL (0.78-2.19)
[2018-08-28 06:06] LABS: THYROID STIMULATING HORMONE 2.4 uIU/mL (0.47-4.68)
[2018-08-28] MEDS: BUDESONIDE NEB 0.5 MG/2 ML AMPUL NEB SCH ×2 (08:03→19:57)
[2018-08-28] MEDS: FAMOTIDINE 20 MG TABLET PO SCH ×4 (08:20→21:37)
[2018-08-28] MEDS: SUCRALFATE SUSP 1 GM/10 ML UDCUP PO SCH ×4 (08:20→21:37)
[2018-08-28] MEDS: METOCLOPRAMIDE HCL 10 MG TABLET PO SCH ×4 (08:21→21:37)
--- NOTE | 2018-08-28 08:58 | EKG REPORT ---
SEVERITY:- ABNORMAL ECG - SINUS RHYTHM NONSPECIFIC INTRAVENTRICULAR CONDUCTION DELAY : Confirmed by: Carlos Albarran MD 28-Aug-2018 08:56:52
[2018-08-28] MEDS: MORPHINE SULFATE 10 MG/ML INJ IV PRN ×2 (09:41→13:08)
[2018-08-28] MEDS: LISINOPRIL 10 MG TABLET PO SCH (09:43)
[2018-08-28] MEDS: APIXABAN 5 MG TABLET PO SCH ×2 (09:43→21:37)
[2018-08-28] MEDS: MULTIVITAMIN TABLET PO SCH (09:44)
[2018-08-28] MEDS: DOCUSATE SODIUM 100 MG CAPSULE PO SCH ×2 (09:44→16:54)
[2018-08-28] MEDS: CYCLOSPORINE 0.05% OPH EMULSIO 0.4 ML DROPERETTE OU SCH ×2 (09:48→16:53)
--- NOTE | 2018-08-28 11:53 | RADIOLOGY REPORT (SQ) ---
EXAM DESCRIPTION: VENOUS BILATERAL LOWER COMPLETED DATE/TIME: 08/28/2018 11:26 am REASON FOR STUDY: R/O DVT. Needs B/L doppler Lower extremities COMPARISON: None. TECHNIQUE: Dynamic and static stewart scale and color images acquired of both lower extremity venous sy stems. Selected spectral images acquired with additional compression and augmentation maneuvers. Imag es stored on PACS. LIMITATIONS: Morbid obesity FINDINGS: RIGHT LEG COMMON FEMORAL AND FEMORAL: Normal phasicity, compression and augmentation. No visualized echogenic m aterial on stewart scale. No defects on color images. POPLITEAL: Normal compression. No thrombus. CALF VESSELS: Normal compression and augmentation. No visualized echogenic material on stewart scale. No defects on color image. GSV AND SSV: Normal compression. No visualized echogenic material on stewart scale. No defects on color images. ANY DEEP VENOUS INSUFFICIENCY: Not evaluated. ANY EVIDENCE OF POPLITEAL CYST: No. OTHER: No other significant finding. LEFT LEG COMMON FEMORAL AND FEMORAL: Normal phasicity, compression and augmentation. No visualized echogenic m aterial on stewart scale. No defects on color images. POPLITEAL: Acute or subacute thrombus in the popliteal vein. No compression. CALF VESSELS: Normal compression and augmentation. No visualized echogenic material on stewart scale. No defects on color images. GSV AND SSV: Greater saphenous normal. Small saphenous with acute/ subacute thrombus. ANY DEEP VENOUS INSUFFICIENCY: Not evaluated. ANY EVIDENCE POPLITEAL CYST: No. OTHER: No other significant finding. IMPRESSION: No DVT in the right leg. Acute/subacute thrombus in the popliteal vein and small saphenous on the left. TECHNICAL DOCUMENTATION: JOB ID: [id number] [employer]- All Rights Reserved Reading location - IP/workstation name: [email or web address]
[2018-08-28 13:14] LABS: CREATINE KINASE MB 1.63 ng/mL (<4.55); TROPONIN I 0.022 ng/mL
--- NOTE | 2018-08-28 16:12 | PROGRESS NOTE E ---
Progress Note NAME: DINH ENGLAND : 1985 AGE: 33Y DATE: 08/28/2018 ROOM: 430 SUBJECTIVE: The patient is a 33-year-old obese male who has past medical history of hypertension and he is on lisinopril for that. The patient admitted because of short of breath. He had a CT scan. He was found to have bilateral PE and the patient started on Eliquis. He is feeling better. OBJECTIVE: GENERAL: The patient lying in bed comfortable, not in distress. VITAL SIGNS: Blood pressure is 123/43, heart rate is 68, respiratory rate is 18, saturation is 99%. HEENT: Head: Normocephalic, atraumatic. Pupils round, reactive to light and accommodation bilaterally. Extraocular movements intact. Ears: Tympanic membranes intact bilaterally. No discharge from the ears. No discharge from the nose. NECK: Supple. No increased JVD. No thyromegaly. No lymphadenopathy. CARDIOVASCULAR: Normal S1, S2. Regular rate and rhythm. No murmur. No gallop. RESPIRATORY: Lungs bilateral atelectasis. ABDOMEN: Obese. MUSCULOSKELETAL: No edema. NEUROLOGIC: Awake, alert. LABORATORY: White blood count 14, hemoglobin is 12.8. Sodium 139, potassium 4.3, creatinine 0.8. CT scan showed bilateral PE. ASSESSMENT: 1. ACUTE HYPOXIC RESPIRATORY FAILURE SECONDARY TO PULMONARY EMBOLISM. 2. BILATERAL PULMONARY EMBOLISM. 3. HYPERTENSION. 4. MORBID OBESITY. PLAN: 1. Will admit the patient. Patient already started on Eliquis 10 mg twice a day. 2. Get echocardiogram. 3. Will get also *------* study. 4. Consult Hematology/Oncology. 5. Will Doppler ultrasound of the lower extremities. DICTATING PHYSICIAN: VISHAL WU M.D. [id number] PHY#: [id number] ID: [id number] JOB#: [id number] ACCT: [id number] cc: >
[2018-08-29 04:51] LABS: ABSOLUTE BASOPHILS # (AUTO) 0.1 10^3/uL (0.0-0.2); ABSOLUTE EOSINOPHILS # (AUTO) 0.4 10^3/uL (0.0-0.6); ABSOLUTE LYMPHOCYTES (AUTO) 2.3 10^3/uL (0.5-4.7); ABSOLUTE MONOCYTES (AUTO) 0.9 10^3/uL (0.1-1.4); ABSOLUTE NEUT (AUTO) 9.4 10^3/uL (1.7-8.2); BASOPHILS % (AUTO) 0.7 % (0-2); EOSINOPHILS % (AUTO) 2.9 % (0-6); HEMATOCRIT 38.4 % (37.9-51.0); HEMOGLOBIN 12.9 g/dL (13.5-17.0); LYMPHOCYTES % (AUTO) 17.7 % (13-45); MEAN CORPUSCULAR HEMOGLOBIN 27.1 pg (27.0-33.4); MEAN CORPUSCULAR HGB CONC 33.4 g/dL (32.0-36.0); MEAN CORPUSCULAR VOLUME 81 fl (80-97); MONOCYTES % (AUTO) 6.9 % (3-13); PLATELET COUNT 180 10^3/uL (150-450); RED BLOOD COUNT 4.74 10^6/uL (4.35-5.55); RED CELL DISTRIBUTION WIDTH 15.3 % (11.5-14.0); SEGMENTED NEUTROPHILS % (AUTO) 71.8 % (42-78); TOTAL CELLS COUNTED % (AUTO) 100 %; WHITE BLOOD COUNT 13.1 10^3/uL (4.0-10.5)
[2018-08-29 05:13] LABS: ANION GAP 7 (5-19); BLOOD UREA NITROGEN 14 mg/dL (7-20); CALCIUM 8.9 mg/dL (8.4-10.2); CARBON DIOXIDE 29 mmol/L (22-30); CHLORIDE 103 mmol/L (98-107); GLUCOSE 115 mg/dL (75-110); POTASSIUM 4.2 mmol/L (3.6-5.0); SODIUM 138.5 mmol/L (137-145)
[2018-08-29] MEDS: SUCRALFATE SUSP 1 GM/10 ML UDCUP PO SCH ×4 (08:36→22:10)
[2018-08-29] MEDS: FAMOTIDINE 20 MG TABLET PO SCH ×4 (08:36→22:10)
--- NOTE | 2018-08-29 08:37 | PDOC CONSULTATION ---
Consultation Consult Date: 08/29/18 Consult reason:: Hematology/Oncology consultation was requested for patient with new pulmonary embolism History of Present Illness Admission Date/PCP: 08/27/18 22:08 POOJA WU History of Present Illness: DINH ENGLAND is a 33 year old male with a longstanding history of reactive airway disease and obesity. He developed pain in his left leg 2 weeks ago, but thought it was a muscle cramp. Last week, while working outside in the cold, he developed pain and burning with breathing. He thought it was his reactive airway, so he took inhalers and saw PCP who started steroids. Dyspnea progressed and he presented to the ED and was found to have bilateral PEs. He was started on Eliquis and today states that the breathing is improved. He is anxious to go home. He denies any recent periods of immobility. No recent steroids, other than the prednisone started a few days prior to admission. No other risk factors and no family history of DVT/PE Past Medical History Cardiac Medical History: Reports: Hypertension - LISINOPRIL Denies: Coronary Artery Disease, DVT, Myocardial Infarction, Pulmonary Embolism Pulmonary Medical History: Reports: Pneumonia - YRS AGO, Sleep Apnea, Other - Reactive airway disease Denies: Asthma, Chronic Obstructive Pulmonary Disease (COPD) Comment Only: Bronchitis - H/O FREQUENT BRONCHITIS EENT Medical History: Reports: None, Eyes - Dry eyes/allergy eyes, Nose - Allergic rhinitis Neurological Medical History: Denies: Multiple Sclerosis, Seizures Endocrine Medical History: Reports: Obesity Denies: Diabetes Mellitus Type 1, Diabetes Mellitus Type 2, Hyperthyroidism, Hypothyroidism Renal/ Medical History: Denies: Chronic Kidney Disease, Nephrolithiasis Malignancy Medical History: Reports: None GI Medical History: Reports: Gastroesophageal Reflux Disease Denies: Cirrhosis, Hepatitis Musculoskeltal Medical History: Reports: Arthritis - R SHOULDER Denies: Gout Skin Medical History: Denies: Eczema, Psoriasis Psychiatric Medical History: Reports: Depression Denies: Alcohol Dependency, Substance Abuse, Tobacco Dependency Traumatic Medical History: Reports: None Hematology: Denies: Anemia, Bleeding Tendencies Infectious Medical History: Reports: None Past Surgical History Past Surgical History: Reports: None, Orthopedic Surgery - Bilateral carpal tunnel release Social History Information Source: Patient Occupation: [employer] office, [address]. Lives with: Spouse/Significant other Smoking Status: Former Smoker Cigarettes Packs Per Day: 1 Number of Years Smokin Last Time Smoked: 2007 Frequency of Alcohol Use: Rare Hx Recreational Drug Use: No Drugs: None Hx Prescription Drug Abuse: No Past Social History Note: Patient is with 1 child. - Advance Directive Resuscitation Status: Full Code Family History Family History: Reviewed & Not Pertinent, Other Parental Family History Reviewed: Yes - Mother with kidney and breast cancers. Father with airway disease. Children Family History Reviewed: Yes Sibling(s) Family History Reviewed.: Yes - Brother with Nishant Syndrome. Medication/Allergy Home Medications: Calcium Carbonate [Calcium] 600 mg PO DAILY 08/28/18 Cetirizine HCl [Zyrtec 10 mg Tablet] 10 mg PO DAILY 08/28/18 Cyclosporine 0.05% Oph Emulsio [Restasis 0.05% Oph Emulsion Pf 0.4 ml] 1 drop OU BID 08/28/18 Fluticasone Propionate [Flonase Nasal [place] 50 Mcg/[place] 16 gm] 1 spray NASL DAILY 08/28/18 Lisinopril [Zestril] 20 mg PO DAILY 08/28/18 Magnesium 250 mg PO DAILY 08/28/18 Pantoprazole Sodium [Protonix] 40 mg PO DAILY 08/28/18 Potassium Gluconate [Potassium] 99 mg PO DAILY 08/28/18 Sertraline HCl [Zoloft 50 mg Tablet] 50 mg PO DAILY 08/28/18 Allergies/Adverse Reactions: No Known Allergies Allergy (Verified 08/27/18 16:58) Review of Systems Constitutional: PRESENT: headache(s). ABSENT: fever(s) Eyes: ABSENT: visual disturbances Ears: ABSENT: hearing changes Nose, Mouth, and Throat: PRESENT: other - Sinus congestion. ABSENT: sore throat Cardiovascular: PRESENT: chest pain, dyspnea on exertion Respiratory: PRESENT: dyspnea Gastrointestinal: ABSENT: constipation, diarrhea, nausea, vomiting Genitourinary: ABSENT: dysuria Musculoskeletal: PRESENT: joint swelling Integumentary: ABSENT: rash Neurological: ABSENT: dizziness, numbness Hematologic/Lymphatic: ABSENT: easy bruising Physical Exam Vital Signs: Temp Pulse Resp BP Pulse Ox 97.9 F 67 16 121/54 L 100 08/29/18 03:24 08/29/18 03:24 08/29/18 03:24 08/29/18 03:24 08/29/18 03:24 Intake & Output 08/28/18 08/29/18 08/30/18 06:59 06:59 06:59 Intake Total 120 960 Output Total 1400 Balance 120 -440 Weight 206.3 kg 206.3 kg General appearance: PRESENT: morbidly obese Exam: 33 year old male. Head exam: PRESENT: atraumatic, normocephalic Eye exam: PRESENT: EOMI, PERRLA Mouth exam: PRESENT: tongue midline Neck exam: ABSENT: lymphadenopathy, tenderness Respiratory exam: PRESENT: clear to auscultation lissette, unlabored Cardiovascular exam: PRESENT: RRR, other - Heart sounds obscured GI/Abdominal exam: PRESENT: soft. ABSENT: tenderness Extremities exam: ABSENT: pedal edema, tenderness Musculoskeletal exam: PRESENT: normal inspection Neurological exam: PRESENT: alert, awake, oriented to person, oriented to place, oriented to time, oriented to situation Psychiatric exam: PRESENT: appropriate affect Skin exam: PRESENT: normal color Results Laboratory Results: 08/29/18 04:14 08/29/18 04:14 08/29/18 08/29/18 04:14 04:14 WBC 13.1 H RBC 4.74 Hgb 12.9 L Hct 38.4 MCV 81 MCH 27.1 MCHC 33.4 RDW 15.3 H Plt Count 180 Seg Neutrophils % 71.8 Lymphocytes % 17.7 Monocytes % 6.9 Eosinophils % 2.9 Basophils % 0.7 Absolute Neutrophils 9.4 H Absolute Lymphocytes 2.3 Absolute Monocytes 0.9 Absolute Eosinophils 0.4 Absolute Basophils 0.1 Sodium 138.5 Potassium 4.2 Chloride 103 Carbon Dioxide 29 Anion Gap 7 BUN 14 Creatinine 0.99 Est GFR ( Amer) > 60 Est GFR (Non-Af Amer) > 60 Glucose 115 H Calcium 8.9 Magnesium 2.0 08/27/18 08/27/18 08/28/18 18:00 18:00 00:10 Creatine Kinase 362 H 267 H CK-MB (CK-2) 2.21 Troponin I 0.036 NT-Pro-B Natriuret Pep 08/28/18 08/28/18 08/28/18 00:10 04:40 04:40 Creatine Kinase 237 H CK-MB (CK-2) 1.86 1.76 Troponin I 0.026 0.026 NT-Pro-B Natriuret Pep 08/28/18 08/28/18 08/28/18 04:40 12:00 12:00 Creatine Kinase 168 CK-MB (CK-2) 1.63 Troponin I 0.022 NT-Pro-B Natriuret Pep 183 H Impressions: Chest X-Ray 08/27/18 16:58 IMPRESSION: NO ACUTE RADIOGRAPHIC FINDING IN THE CHEST. Chest/Abdomen CTA 08/27/18 20:03 IMPRESSION: 1. Suboptimal timing of contrast. Large bilateral pulmonary emboli of both main pulmonary arteries extending into the segmental pulmonary arteries. 2. Small focal ground-glass opacity and clustered nodules of the right lower lobe which may represent superimposed pneumonia. Recommend continued follow-up to resolution. 3. Indeterminate left renal lesion. Nonemergent dedicated ultrasound can be obtained for further characterization. 4. Hepatic steatosis. Venous Doppler Study 08/28/18 00:00 IMPRESSION: No DVT in the right leg. Acute/subacute thrombus in the popliteal vein and small saphenous on the left. Status: Image reviewed by me Assessment & Plan - Diagnosis (1) Bilateral pulmonary embolism Is this a current diagnosis for this admission?: Yes Plan: I discussed this diagnosis with the patient and his . He is now on Eliquis. I recommend continuing this for at least 6 months. I will be happy to follow him as outpatient for this. (2) Reactive airway disease Qualifiers: Asthma severity: mild Asthma persistence: intermittent Asthma complication type: uncomplicated Qualified Code(s): J45.20 - Mild intermittent asthma, uncomplicated Is this a current diagnosis for this admission?: Yes Plan: with CT scan with pulmonary nodule. This may be old or new. This may be reacti ve, or a lung cancer. I will repeat CT in 6-8 weeks as outpatient to follow-up on this nodule, if no old comparison films can be found. (3) Left kidney mass Is this a current diagnosis for this admission?: Yes Plan: Abnormality seen on recent CT abdomen. Recommend dedicated US of kidney. If patient is still here in the hospital today, this could be obtained today. However, if plans are to discharge patient, then I can order this as an outpatient. He is currently asymptomatic from this. It may be renal cyst. (4) Morbid obesity with BMI of 60.0-69.9, adult Is this a current diagnosis for this admission?: Yes Plan: He wears BIPAP/CPAP at home. He would benefit from weight reduction. - Plan Summary Plan Summary: Thank you for this consultation. I will continue to follow as outpatient. Please call with any questions or concerns.
[2018-08-29] MEDS: BUDESONIDE NEB 0.5 MG/2 ML AMPUL NEB SCH ×2 (09:11→20:01)
[2018-08-29] MEDS: SERTRALINE HCL 50 MG TABLET PO SCH (09:41)
[2018-08-29] MEDS: LISINOPRIL 10 MG TABLET PO SCH (09:41)
[2018-08-29] MEDS: DOCUSATE SODIUM 100 MG CAPSULE PO SCH ×2 (09:41→17:13)
[2018-08-29] MEDS: METOCLOPRAMIDE HCL 10 MG TABLET PO SCH ×4 (09:41→22:15)
[2018-08-29] MEDS: APIXABAN 5 MG TABLET PO SCH ×2 (09:42→22:10)
[2018-08-29] MEDS: MULTIVITAMIN TABLET PO SCH (09:42)
[2018-08-29] MEDS: CYCLOSPORINE 0.05% OPH EMULSIO 0.4 ML DROPERETTE OU SCH ×2 (09:43→17:13)
--- NOTE | 2018-08-29 13:08 | PDOC PROGRESS REPORT ---
Subjective Progress Note for:: 08/29/18 Subjective:: 33-year-old morbidly obese male admitted with shortness of breath found to have bilateral pulmonary embolisms. He has also have a left lower leg DVT. He was started on Eliquis 10 mg p.o. twice daily. Oncology consult was also done. No acute events in the last 24 hours. Afebrile. Reason For Visit: BILATERAL PULMONARY EMBOLI Physical Exam Vital Signs: Temp Pulse Resp BP Pulse Ox 98.6 F 66 18 119/47 L 100 08/29/18 10:46 08/29/18 10:46 08/29/18 10:46 08/29/18 10:46 08/29/18 10:46 Intake & Output 08/28/18 08/29/18 08/30/18 06:59 06:59 06:59 Intake Total 120 960 Output Total 1400 Balance 120 -440 Weight 206.3 kg 206.3 kg General appearance: PRESENT: no acute distress Head exam: PRESENT: atraumatic Eye exam: PRESENT: PERRLA Neck exam: ABSENT: carotid bruit, JVD, lymphadenopathy, thyromegaly Respiratory exam: PRESENT: clear to auscultation lissette. ABSENT: rales, rhonchi, wheezes Cardiovascular exam: PRESENT: RRR. ABSENT: diastolic murmur, rubs, systolic murmur GI/Abdominal exam: PRESENT: other - Morbidly obese abdomen with bowel sounds nor mal soft nontender belly. Extremities exam: PRESENT: full ROM. ABSENT: calf tenderness, clubbing, pedal edema Neurological exam: PRESENT: alert, awake, oriented to person, oriented to place, oriented to time, oriented to situation, CN II-XII grossly intact. ABSENT: motor sensory deficit Psychiatric exam: PRESENT: appropriate affect, normal mood. ABSENT: homicidal ideation, suicidal ideation Results Laboratory Results: 08/29/18 04:14 08/29/18 04:14 08/29/18 08/29/18 04:14 04:14 WBC 13.1 H RBC 4.74 Hgb 12.9 L Hct 38.4 MCV 81 MCH 27.1 MCHC 33.4 RDW 15.3 H Plt Count 180 Seg Neutrophils % 71.8 Lymphocytes % 17.7 Monocytes % 6.9 Eosinophils % 2.9 Basophils % 0.7 Absolute Neutrophils 9.4 H Absolute Lymphocytes 2.3 Absolute Monocytes 0.9 Absolute Eosinophils 0.4 Absolute Basophils 0.1 Sodium 138.5 Potassium 4.2 Chloride 103 Carbon Dioxide 29 Anion Gap 7 BUN 14 Creatinine 0.99 Est GFR ( Amer) > 60 Est GFR (Non-Af Amer) > 60 Glucose 115 H Calcium 8.9 Magnesium 2.0 08/27/18 08/27/18 08/28/18 18:00 18:00 00:10 Creatine Kinase 362 H 267 H CK-MB (CK-2) 2.21 Troponin I 0.036 NT-Pro-B Natriuret Pep 08/28/18 08/28/18 08/28/18 00:10 04:40 04:40 Creatine Kinase 237 H CK-MB (CK-2) 1.86 1.76 Troponin I 0.026 0.026 NT-Pro-B Natriuret Pep 08/28/18 08/28/18 08/28/18 04:40 12:00 12:00 Creatine Kinase 168 CK-MB (CK-2) 1.63 Troponin I 0.022 NT-Pro-B Natriuret Pep 183 H Impressions: Chest X-Ray 08/27/18 16:58 IMPRESSION: NO ACUTE RADIOGRAPHIC FINDING IN THE CHEST. Chest/Abdomen CTA 08/27/18 20:03 IMPRESSION: 1. Suboptimal timing of contrast. Large bilateral pulmonary emboli of both main pulmonary arteries extending into the segmental pulmonary arteries. 2. Small focal ground-glass opacity and clustered nodules of the right lower lobe which may represent superimposed pneumonia. Recommend continued follow-up to resolution. 3. Indeterminate left renal lesion. Nonemergent dedicated ultrasound can be obtained for further characterization. 4. Hepatic steatosis. Venous Doppler Study 08/28/18 00:00 IMPRESSION: No DVT in the right leg. Acute/subacute thrombus in the popliteal vein and small saphenous on the left. Assessment & Plan - Diagnosis (1) Bilateral pulmonary embolism Is this a current diagnosis for this admission?: Yes Plan: 08/29/2018-patient was admitted with bilateral pulmonary embolism started on Eliquis 10 mg p.o. twice daily echo report is pending. And left lower leg DVT was present. Heme consult was done. And is to continue the present management. (2) Morbid obesity with BMI of 45.0-49.9, adult Is this a current diagnosis for this admission?: Yes Plan: 08/29/2018 morbidly obese male BMI is more than 45 diet exercise weight loss lifestyle modifications are recommended. Dietary consult was requested. - Time Time Spent with patient: 15-24 minutes Medications reviewed and adjusted accordingly: Yes Anticipated discharge: Home
--- NOTE | 2018-08-29 18:52 | XCELERA REPORT ---
[address] [address] Transthoracic Echocardiogram Report Name: DINH ENGLAND Age: 33 yrs Gender: Male : 1985 Patient Status: Inpatient Patient Location: [place] [id number]^A Study Date: 08/28/2018 08:36 AM Height: 72 in Weight: 454 lb BSA: 3.0 m2 Procedure: A two-dimensional transthoracic echocardiogram with color flow and Doppler was performed. Study Quality: Poor. poor endocardial visualisation, and poor doppler interogation. Reason For Study: B/L PE History: Bilateral Pulmonary Emboli. Ordering Physician: VISHAL WU Performed By: Jass Montaño Interpretation Summary poor endocardial visualisation, and poor doppler interogation The left ventricle is grossly normal size. There is normal left ventricular wall thickness. Probably no defenite regional wall motion abnormality.LVEF is probably 65%. Probbly normal LA and RA. There is no evidence of mitral valve prolapse. There is no vegetation seen on the mitral valve. There is no mitral valve stenosis. There is a trace amount of mitral regurgitation There is no aortic valve stenosis No aortic regurgitation is present. There is no tricuspid stenosis. Right ventricular systolic pressure is at the upper limits of normal of normal.Probably trace TR. RVSP is 30 mm of Hg , with RA mean of 10. The pulmonic valve is not well visualized. The aortic root is not well visualized. There is no pericardial effusion. MMode/2D Measurements & Calculations RVDd: 3.8 cm LVIDd: 6.2 cm FS: 38.4 % Ao root diam: 3.3 cm IVSd: 1.1 cm LVIDs: 3.8 cm EDV(Teich): 193.8 ml Ao root area: 8.6 cm2 LVPWd: 1.1 cm ESV(Teich): 62.6 ml LA dimension: 3.8 cm EF(Teich): 67.7 % LVOT diam: 1.9 cm LVOT area: 2.9 cm2 Doppler Measurements & Calculations MV E max martha: MV P1/2t max martha: Ao V2 max: LV V1 max P.2 cm/sec 122.2 cm/sec 186.2 cm/sec 11.8 mmHg MV A max martha: MV P1/2t: 93.9 msec Ao max PG: LV V1 mean P.2 cm/sec MVA(P1/2t): 2.3 cm2 13.9 mmHg 6.1 mmHg MV E/A: 1.1 MV dec slope: Ao V2 mean: LV V1 max: 126.4 cm/sec 171.8 cm/sec 381.2 cm/sec2 Ao mean PG: LV V1 mean: MV dec time: 0.22 sec 7.1 mmHg 114.5 cm/sec Ao V2 VTI: 34.3 cm LV V1 VTI: 33.1 cm SARA(I,D): 2.8 cm2 SARA(V,D): 2.7 cm2 MR max martha: SV(LVOT): 97.2 ml PA V2 max: TR max martha: 154.1 cm/sec 105.2 cm/sec 224.0 cm/sec MR max P.5 mmHg PA max PG: TR max P.7 mmHg 20.1 mmHg PA V2 mean: 82.2 cm/sec PA mean P.1 mmHg PA V2 VTI: 26.7 cm MV P1/2t-pr_phl: 93.9 msec Left Ventricle The left ventricle is grossly normal size. There is normal left ventricular wall thickness. Probably no defenite regional wall motion abnormality.LVEF is probably 65%. Doppler measurements suggest normal left ventricular diastolic function. Right Ventricle The right ventricle is not well visualized secondary to technical limitations. Atria Probbly normal LA and RA. Mitral Valve There is no evidence of mitral valve prolapse. There is no vegetation seen on the mitral valve. There is no mitral valve stenosis. There is a trace amount of mitral regurgitation. Aortic Valve There is no aortic valve stenosis. No aortic regurgitation is present. Tricuspid Valve There is no tricuspid stenosis. Right ventricular systolic pressure is at the upper limits of normal. of normal.Probably trace TR. RVSP is 30 mm of Hg , with RA mean of 10. Pulmonic Valve The pulmonic valve is not well visualized. Great Vessels The aortic root is not well visualized. Effusions There is no pericardial effusion. : VISHAL WU > Roxann Carver
[2018-08-30 06:58] LABS: ABSOLUTE BASOPHILS # (AUTO) 0.1 10^3/uL (0.0-0.2); ABSOLUTE EOSINOPHILS # (AUTO) 0.3 10^3/uL (0.0-0.6); ABSOLUTE LYMPHOCYTES (AUTO) 1.9 10^3/uL (0.5-4.7); ABSOLUTE MONOCYTES (AUTO) 0.8 10^3/uL (0.1-1.4); ABSOLUTE NEUT (AUTO) 8.4 10^3/uL (1.7-8.2); BASOPHILS % (AUTO) 0.5 % (0-2); EOSINOPHILS % (AUTO) 2.9 % (0-6); HEMATOCRIT 38.8 % (37.9-51.0); HEMOGLOBIN 13.1 g/dL (13.5-17.0); LYMPHOCYTES % (AUTO) 16.4 % (13-45); MEAN CORPUSCULAR HEMOGLOBIN 27.3 pg (27.0-33.4); MEAN CORPUSCULAR HGB CONC 33.7 g/dL (32.0-36.0); MEAN CORPUSCULAR VOLUME 81 fl (80-97); MONOCYTES % (AUTO) 7.1 % (3-13); PLATELET COUNT 222 10^3/uL (150-450); RED BLOOD COUNT 4.78 10^6/uL (4.35-5.55); RED CELL DISTRIBUTION WIDTH 15.6 % (11.5-14.0); SEGMENTED NEUTROPHILS % (AUTO) 73.1 % (42-78); TOTAL CELLS COUNTED % (AUTO) 100 %; WHITE BLOOD COUNT 11.4 10^3/uL (4.0-10.5)
[2018-08-30 07:12] LABS: ANION GAP 9 (5-19); BLOOD UREA NITROGEN 15 mg/dL (7-20); CALCIUM 9.1 mg/dL (8.4-10.2); CARBON DIOXIDE 26 mmol/L (22-30); CHLORIDE 103 mmol/L (98-107); GLUCOSE 103 mg/dL (75-110); POTASSIUM 4.6 mmol/L (3.6-5.0); SODIUM 137.6 mmol/L (137-145)
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
[2018-08-30] MEDS: BUDESONIDE NEB 0.5 MG/2 ML AMPUL NEB SCH (09:08)
[2018-08-30] MEDS: MULTIVITAMIN TABLET PO SCH (09:53)
[2018-08-30] MEDS: SUCRALFATE SUSP 1 GM/10 ML UDCUP PO SCH ×3 (09:53→15:56)
[2018-08-30] MEDS: SERTRALINE HCL 50 MG TABLET PO SCH (09:53)
[2018-08-30] MEDS: APIXABAN 5 MG TABLET PO SCH (09:53)
[2018-08-30] MEDS: FAMOTIDINE 20 MG TABLET PO SCH ×3 (09:54→15:56)
[2018-08-30] MEDS: METOCLOPRAMIDE HCL 10 MG TABLET PO SCH ×3 (09:54→15:56)
[2018-08-30] MEDS: DOCUSATE SODIUM 100 MG CAPSULE PO SCH (09:54)
[2018-08-30] MEDS: CYCLOSPORINE 0.05% OPH EMULSIO 0.4 ML DROPERETTE OU SCH (09:56)
[2018-08-30] MEDS ORDERED: CETIRIZINE 10 MG TABLET PO SCH (10:00)
[2018-08-30] MEDS ORDERED: FLUTICASONE NASAL SPRAY 50 MCG/SPRY 120 SPRAY/16 GM NASL SCH (10:00)
[2018-08-30] MEDS ORDERED: (PENDING PHARMACY ID) (Magnesium [Magnesium] 250 MG) PO SCH (10:00)
[2018-08-30] MEDS ORDERED: LISINOPRIL 10 MG TABLET PO SCH (10:00)
[2018-08-30] MEDS ORDERED: MAGNESIUM OXIDE 400 MG TABLET PO SCH (10:00)
[2018-08-30] MEDS ORDERED: (PENDING PHARMACY ID) (Lisinopril [Zestril] 20 MG) PO SCH (10:00)
[2018-08-30] MEDS ORDERED: CALCIUM CARBONATE 500 MG TABLET PO SCH (10:00)
[2018-08-30] MEDS ORDERED: (PENDING PHARMACY ID) (Calcium Carbonate [Calcium] 600 MG) PO SCH (10:00)
[2018-08-30 16:17] VITALS: BP 146/70
--- NOTE | 2018-08-30 17:21 | PDOC DISCHARGE SUMMARY ---
General - Admit/Disc Date/PCP Admission Date/Primary Care Provider: 08/27/18 22:08 POOJA WU Discharge Date: 08/30/18 - Discharge Diagnosis (1) Bilateral pulmonary embolism Is this a current diagnosis for this admission?: Yes (2) Left leg DVT Is this a current diagnosis for this admission?: Yes (3) Pulmonary nodule Is this a current diagnosis for this admission?: Yes (4) Renal mass Is this a current diagnosis for this admission?: Yes - Additional Information Resuscitation Status: Full Code Discharge Diet: As Tolerated Discharge Activity: Activity As Tolerated, Balance Activity w/Rest Prescriptions: Apixaban [Eliquis 5 mg Tablet] 5 mg PO Q12 #76 tablet Home Medications: Calcium Carbonate [Calcium] 600 mg PO DAILY 08/28/18 Cetirizine HCl [Zyrtec 10 mg Tablet] 10 mg PO DAILY 08/28/18 Cyclosporine 0.05% Oph Emulsio [Restasis 0.05% Oph Emulsion Pf 0.4 ml] 1 drop OU BID 08/28/18 Fluticasone Propionate [Flonase Nasal [place] 50 Mcg/[place] 16 gm] 1 spray NASL DAILY 08/28/18 Lisinopril [Zestril] 20 mg PO DAILY 08/28/18 Magnesium 250 mg PO DAILY 08/28/18 Pantoprazole Sodium [Protonix] 40 mg PO DAILY 08/28/18 Potassium Gluconate [Potassium] 99 mg PO DAILY 08/28/18 Sertraline HCl [Zoloft 50 mg Tablet] 50 mg PO DAILY 08/28/18 Acetaminophen [Tylenol 325 mg Tablet] 650 mg PO Q4HP PRN tablet 08/30/18 Apixaban [Eliquis 5 mg Tablet] 5 mg PO Q12 #76 tablet 08/30/18 History of Present Illness History of Present Illness: Admitting hospitalist's H&P: DINH ENGLAND is a 33 year old male presented to the emergency room with a 4-day history of progressively worsening dyspnea. He admits that approximately 4 days ago he began feeling short of breath and had increased dyspnea with exertion. He also admits intermittent, acute, short lived, mild to moderate central chest pain/burning sensation when taking a deep breath. The symptoms have persisted and gradually worsened to the point where he is having a difficult time doing even minimal activities of daily living due to severe dyspnea. His symptoms have been accompanied by lightheadedness/dizziness, generalized weakness and a sensation of cold fingers and toes. He used an albuterol inhaler with no improvement and also saw his primary care provider who gave him prednisone which has also not resulted in any improvement in his symptoms. He admits to similar prior episodes associated with his reactive air way disease but never this severe, lasting this long or failing to improve with treatment using inhalers and/or steroids. In the emergency room he was noted to be hypertensive and dyspneic on exertion without hypoxia. He was found to have bilateral pulmonary emboli and left LE DVT. He denies fever and cough and does not have a history of recent extended travel or other activity that may have pr ovoked a DVT/PE. He was started on Lovenox for PE therapy and is admitted for further evaluation and treatment. Hospital Course Hospital Course: Patient was admitted with acute bilateral PE and left leg DVT. He received Lovenox in the ER and was switched to Eliquis subsequently. He was evaluated by hem/onc. He was also noted to have right pulmonary nodules and an indeterminate 2 cm exophytic left renal lesion. He continued to improve clinically in terms of his breathing status and was weaned off O2 support. Echocardiogram did not show signs of RV strain. He tolerated Eliquis well with no bleeding issues. On day of discharge, he ambulated on the hallways back and forth on room air without any issue, SOB or desaturation. He did not qualify for home O2 as he maintained his sats well on room air during ambulation. Discussed with hem/onc, he will ff-up with Dr. Rincon in a week for further work-up of his pulmonary nodules and renal lesion as well. His hypercoagulable work-up will also be pursued outpatient with hem/onc. He will be on Eliquis for at least 6 months. Physical Exam Vital Signs: Temp Pulse Resp BP Pulse Ox 98.5 F 85 20 146/70 H 94 08/30/18 17:14 08/30/18 17:14 08/30/18 17:14 08/30/18 17:14 08/30/18 17:14 Intake & Output 08/29/18 08/30/18 08/31/18 06:59 06:59 06:59 Intake Total 960 974 700 Output Total 8845 288 4829 Balance -440 374 -500 Weight 454 lb 13.018 oz 454 lb 13.018 oz 454 lb 13.018 oz General appearance: PRESENT: no acute distress, morbidly obese Head exam: PRESENT: atraumatic, normocephalic Eye exam: PRESENT: conjunctiva pink, EOMI, PERRLA. ABSENT: scleral icterus Ear exam: PRESENT: normal external ear exam Mouth exam: PRESENT: moist, tongue midline Neck exam: ABSENT: carotid bruit, JVD, lymphadenopathy, thyromegaly Respiratory exam: PRESENT: clear to auscultation lissette. ABSENT: rales, rhonchi, wheezes Cardiovascular exam: PRESENT: RRR. ABSENT: diastolic murmur, rubs, systolic murmur Pulses: PRESENT: normal dorsalis pedis pul GI/Abdominal exam: PRESENT: normal bowel sounds, soft. ABSENT: distended, guarding, mass, organolmegaly, rebound, tenderness Rectal exam: PRESENT: deferred Neurological exam: PRESENT: alert, awake, oriented to person, oriented to place, oriented to time, oriented to situation, CN II-XII grossly intact. ABSENT: motor sensory deficit Results Laboratory Results: 08/30/18 06:03 08/30/18 06:03 08/30/18 08/30/18 06:03 06:03 WBC 11.4 H RBC 4.78 Hgb 13.1 L Hct 38.8 MCV 81 MCH 27.3 MCHC 33.7 RDW 15.6 H Plt Count 222 Seg Neutrophils % 73.1 Lymphocytes % 16.4 Monocytes % 7.1 Eosinophils % 2.9 Basophils % 0.5 Absolute Neutrophils 8.4 H Absolute Lymphocytes 1.9 Absolute Monocytes 0.8 Absolute Eosinophils 0.3 Absolute Basophils 0.1 Sodium 137.6 Potassium 4.6 Chloride 103 Carbon Dioxide 26 Anion Gap 9 BUN 15 Creatinine 0.92 Est GFR ( Amer) > 60 Est GFR (Non-Af Amer) > 60 Glucose 103 Calcium 9.1 Magnesium 2.2 08/27/18 08/27/18 08/28/18 18:00 18:00 00:10 Creatine Kinase 362 H 267 H CK-MB (CK-2) 2.21 Troponin I 0.036 NT-Pro-B Natriuret Pep 08/28/18 08/28/18 08/28/18 00:10 04:40 04:40 Creatine Kinase 237 H CK-MB (CK-2) 1.86 1.76 Troponin I 0.026 0.026 NT-Pro-B Natriuret Pep 08/28/18 08/28/18 08/28/18 04:40 12:00 12:00 Creatine Kinase 168 CK-MB (CK-2) 1.63 Troponin I 0.022 NT-Pro-B Natriuret Pep 183 H Impressions: Chest X-Ray 08/27/18 16:58 IMPRESSION: NO ACUTE RADIOGRAPHIC FINDING IN THE CHEST. Chest/Abdomen CTA 08/27/18 20:03 IMPRESSION: 1. Suboptimal timing of contrast. Large bilateral pulmonary emboli of both main pulmonary arteries extending into the segmental pulmonary arteries. 2. Small focal ground-glass opacity and clustered nodules of the right lower lobe which may represent superimposed pneumonia. Recommend continued follow-up to resolution. 3. Indeterminate left renal lesion. Nonemergent dedicated ultrasound can be obtained for further characterization. 4. Hepatic steatosis. Venous Doppler Study 08/28/18 00:00 IMPRESSION: No DVT in the right leg. Acute/subacute thrombus in the popliteal vein and small saphenous on the left. Qualifiers - * PATIENT BEING DISCHARGED WITH ANY OF THE FOLLOWING DIAGNOSIS: VTE (PE or DVT) VTE patient discharged on overlapping Therapy?: No Reason(s) for not prescribing Overlap Therapy:: Not indicated
--- NOTE | 2018-08-30 17:38 | RADIOLOGY REPORT (SQ) ---
EXAM DESCRIPTION: [employer] COMPLETED DATE/TIME: 08/30/2018 5:27 pm REASON FOR STUDY: Left kidney abnormal CT COMPARISON: CTA chest dated 08/27/2018. TECHNIQUE: Dynamic and static grayscale images acquired of the kidneys and bladder and recorded on P ACS. Additional selected color Doppler and spectral images recorded. LIMITATIONS: Study limited due to the patient's obesity. FINDINGS: RIGHT KIDNEY: Normal size. Normal echogenicity. No solid or suspicious masses. No h ydronephrosis. No calcifications. LEFT KIDNEY: Normal size. Normal echogenicity. 2.4 cm hypoechoic cyst in the upper pole. No jeri id or suspicious masses. No hydronephrosis. No calcifications. BLADDER: No masses. OTHER FINDINGS: No other significant finding. IMPRESSION: LIMITED STUDY. 2.4 CM CYST IN THE UPPER POLE OF THE LEFT KIDNEY. TECHNICAL DOCUMENTATION: JOB ID: [id number] [employer]- All Rights Reserved Reading location - IP/workstation name: [email or web address]
== END 2018-08-30 17:50 | disposition home or self-care (01) | DRG 176 ==
LOC: ER 16:39 → EH 22:08 → 4S 08-28 15:31
PROVIDERS: ADMIT Emergency Medicine; ATTEND Emergency Medicine
DX: I26.99 Other pulmonary embolism without acute cor pulmonale (principal); I82.432 Acute embolism and thrombosis of left popliteal vein; I82.492 Acute embolism and thrombosis of other specified deep vein of left lower extremity; Z68.44 Body mass index [BMI] 60.0-69.9, adult; J45.20 Mild intermittent asthma, uncomplicated; R91.8 Other nonspecific abnormal finding of lung field; N28.89 Other specified disorders of kidney and ureter; E66.01 Morbid (severe) obesity due to excess calories; I10 Essential (primary) hypertension; G47.33 Obstructive sleep apnea (adult) (pediatric); K21.9 Gastro-esophageal reflux disease without esophagitis; M19.011 Primary osteoarthritis, right shoulder; F32.9 Major depressive disorder, single episode, unspecified; Z79.899 Other long term (current) drug therapy; Z87.891 Personal history of nicotine dependence
CPT/HCPCS: 36415; 71046; 71275; 76775; 80048; 80053; 80061; 82550; 82553; 82803; 83036; 83735; 83880; 84439; 84443; 84481; 84484; 85025; 85379; 93005; 93010; 93306; 93970; 94660; 99285; J2270; J3490

== ENCOUNTER 2018-09-14 00:08 | Emergency (ER) | payer BC ==
[2018-09-14] MEDS ORDERED: ASPIRIN 81 MG TABLET, CHEWABLE ONE (00:57)
[2018-09-14] MEDS ORDERED: ASPIRIN 81 MG TABLET, CHEWABLE PO ONE (01:01)
--- NOTE | 2018-09-14 01:03 | ER Document Report ---
ED Cardiac - General Chief Complaint: Chest Pain Stated Complaint: CHEST PAIN,SHORTNESS OF BREATH Time Seen by Provider: 09/14/18 00:44 Primary Care Provider: MELI LEIGH FNP-C [Primary Care Provider] - Follow up as needed Notes: Patient is a 33-year-old male that comes to the emergency department chief complaint of chest pain and shortness of breath that started at 6:30 PM. He states it started mild but then worsened, he states after he arrived to the emergency department symptoms slightly improved, he states he now has a 1 out of 10 discomfort in his chest and while sitting on the bed he does not have any shortness of breath. He denies fever chills, nausea or vomiting. He was diagnosed with bilateral PEs and placed on Eliquis, discharged from here on 08/30/2018, has performed a follow-up with Dr. Elisabeth souza. Former smoker, only other past medical history reported is obesity and reactive airway disease. TRAVEL OUTSIDE OF THE [place] IN LAST 30 DAYS: No - Related Data Allergies/Adverse Reactions: No Known Allergies Allergy (Verified 08/27/18 16:58) Past Medical History - General Information source: Patient - Social History Smoking Status: Former Smoker Frequency of alcohol use: None Drug Abuse: None Lives with: Family Family History: Reviewed & Not Pertinent, Other - Past Medical History Cardiac Medical History: Reports: Hx DVT, Hx Hypertension - LISINOPRIL, Hx Pulmonary Embolism Denies: Hx Coronary Artery Disease, Hx Heart Attack Pulmonary Medical History: Reports: Hx Pneumonia - YRS AGO, Hx Sleep Apnea Denies: Hx Asthma, Hx COPD Comment Only: Hx Bronchitis - H/O FREQUENT BRONCHITIS Neurological Medical History: Denies: Hx Cerebrovascular Accident, Hx Seizures Endocrine Medical History: Denies: Hx Diabetes Mellitus Type 1, Hx Diabetes Mellitus Type 2, Hx Hyperthyroidism, Hx Hypothyroidism Renal/ Medical History: Denies: Hx Peritoneal Dialysis GI Medical History: Reports: Hx Gastroesophageal Reflux Disease. Denies: Hx Cirrhosis, Hx Hepatitis Musculoskeletal Medical History: Reports Hx Arthritis - R SHOULDER, Denies Hx Gout Skin Medical History: Denies Hx Eczema, Denies Hx Psoriasis Psychiatric Medical History: Reports: Hx Depression Infectious Medical History: Denies: Hx Hepatitis Past Surgical History: Reports: Hx Orthopedic Surgery - Bilateral carpal tunnel release - Immunizations Hx Diphtheria, Pertussis, Tetanus Vaccination: Yes Review of Systems - Review of Systems Constitutional: No symptoms reported EENT: No symptoms reported Cardiovascular: See HPI Respiratory: See HPI Gastrointestinal: No symptoms reported Genitourinary: No symptoms reported Male Genitourinary: No symptoms reported Musculoskeletal: No symptoms reported Skin: No symptoms reported Hematologic/Lymphatic: No symptoms reported Neurological/Psychological: No symptoms reported Physical Exam - Vital signs Vitals: Temp Pulse Resp BP Pulse Ox 97.9 F 70 18 161/73 H 99 09/14/18 00:31 09/14/18 00:31 09/14/18 00:31 09/14/18 00:09/14/18 00:31 - Notes Notes: GENERAL: Alert, interacts well. No acute distress. Obese. HEAD: Normocephalic, atraumatic. EYES: Pupils equal, round, and reactive to light. Extraocular movements intact. ENT: Oral mucosa moist, tongue midline. Oropharynx unremarkable. Airway patent. Nares patent, no nasal septal hematoma, TM's intact. NECK: Full range of motion. Supple. Trachea midline. LUNGS: Clear to auscultation bilaterally, no wheezes, rales, or rhonchi. No respiratory distress. HEART: Regular rate and rhythm. No murmur ABDOMEN: Soft, non-tender. Non-distended. Bowel sounds present in all 4 q uadrants. GENITOURINARY: Deferred EXTREMITIES: Moves all 4 extremities spontaneously. No edema, normal radial and dorsalis pedis pulses bilaterally. No cyanosis. BACK: no cervical, thoracic, lumbar midline tenderness. No saddle anesthesia, normal distal neurovascular exam. NEUROLOGICAL: Alert and oriented x3. Normal speech. [cranial nerves II through XII grossly intact]. PSYCH: Normal affect, normal mood. SKIN: Warm, dry, normal turgor. No rashes or lesions noted. Course - Re-evaluation Re-evalutation: EKG shows sinus rhythm with no T wave inversions or ST segment changes in consecutive leads. Nonspecific intraventricular conduction delay. No significant change from prior. Chest x-ray unremarkable. CBC, chemistry unremarkable, troponin negative. Patient asymptomatic on reevaluation, states symptoms slightly come and go but have not been as bad as before. Discussed with patient in detail. Because he does not have tachypnea, hypoxia, tachycardia, any current concerning symptoms, and negative workup so far if we cycle his troponin and this is negative he will be discharged for close follow-up with hematology and primary care which has already been arranged. He will continue his Eliquis. Patient states satisfaction and agreement with plan. Because of the lack of the concerning findings I have low suspicion of developing saddle emboli or worsening clots. signs of heart strain are not evident, and patient does not have evidence of AL at this point. Troponin cycled and negative. Patient will be discharged home for close follow- up. Discussed with Dr. Pop. Patient stable at time of discharge. - Vital Signs Vital signs: Temp Pulse Resp BP Pulse Ox 97.9 F 70 18 154/80 H 96 09/14/18 00:31 09/14/18 00:31 09/14/18 05:40 09/14/18 05:42 09/14/18 05:40 - Laboratory Result Diagrams: 09/14/18 01:14 09/14/18 01:14 Laboratory results interpreted by me: 09/14/18 09/14/18 01:14 01:14 Hgb 13.4 L RDW 15.9 H Glucose 168 H Discharge - Discharge Clinical Impression: Shortness of breath Chest pain Qualifiers: Chest pain type: unspecified Qualified Code(s): R07.9 - Chest pain, unspecified Condition: Stable Disposition: HOME, SELF-CARE Additional Instructions: Your evaluation here did not show any concerning findings or signs of worsening condition. Continue Eliquis, follow-up with hematology for additional evaluation and management. Return if you worsen including difficulty breathing, passing out, returned or increased pain, fever, or any other concerning or worsening symptoms. Referrals: MELI LEIGH, TAPE FASTENER MACHINE OPERATOR-C [Primary Care Provider] - Follow up as needed
[2018-09-14 01:27] LABS: ABSOLUTE BASOPHILS # (AUTO) 0.1 10^3/uL (0.0-0.2); ABSOLUTE EOSINOPHILS # (AUTO) 0.3 10^3/uL (0.0-0.6); ABSOLUTE MONOCYTES (AUTO) 0.5 10^3/uL (0.1-1.4); ABSOLUTE NEUT (AUTO) 6.6 10^3/uL (1.7-8.2); BASOPHILS % (AUTO) 0.8 % (0-2); EOSINOPHILS % (AUTO) 3.4 % (0-6); HEMATOCRIT 39.5 % (37.9-51.0); HEMOGLOBIN 13.4 g/dL (13.5-17.0); LYMPHOCYTES % (AUTO) 20.7 % (13-45); MEAN CORPUSCULAR HEMOGLOBIN 27.4 pg (27.0-33.4); MEAN CORPUSCULAR HGB CONC 33.9 g/dL (32.0-36.0); MEAN CORPUSCULAR VOLUME 81 fl (80-97); MONOCYTES % (AUTO) 5.4 % (3-13); PLATELET COUNT 262 10^3/uL (150-450); RED BLOOD COUNT 4.89 10^6/uL (4.35-5.55); RED CELL DISTRIBUTION WIDTH 15.9 % (11.5-14.0); SEGMENTED NEUTROPHILS % (AUTO) 69.7 % (42-78); TOTAL CELLS COUNTED % (AUTO) 100 %; WHITE BLOOD COUNT 9.4 10^3/uL (4.0-10.5)
[2018-09-14 01:42] LABS: ALANINE AMINOTRANSFERASE 56 U/L (21-72); ALBUMIN 4.4 g/dL (3.5-5.0); ALKALINE PHOSPHATASE 101 U/L (38-126); ANION GAP 7 (5-19); ASPARTATE AMINO TRANSFERASE 40 U/L (17-59); BILIRUBIN,DIRECT 0.2 mg/dL (0.0-0.4); BILIRUBIN,TOTAL 0.4 mg/dL (0.2-1.3); BLOOD UREA NITROGEN 13 mg/dL (7-20); CALCIUM 9.4 mg/dL (8.4-10.2); CARBON DIOXIDE 29 mmol/L (22-30); CHLORIDE 103 mmol/L (98-107); GLUCOSE 168 mg/dL (75-110); POTASSIUM 4.6 mmol/L (3.6-5.0); SODIUM 139.2 mmol/L (137-145); TOTAL PROTEIN 7.2 g/dL (6.3-8.2)
--- NOTE | 2018-09-14 02:25 | RADIOLOGY REPORT (SQ) ---
EXAM DESCRIPTION: XR CHEST 1 VIEW COMPLETED DATE/TME: 09/14/2018 01:01 CLINICAL HISTORY: 33 years Male, chest pain COMPARISON:08/27/2018 NUMBER OF VIEWS/TECHNIQUE: 1/AP FINDINGS: Adequate lung volume, clear parenchyma, normal cardiac silhouette, and intact bony thorax. IMPRESSION: No acute cardiopulmonary findings.
[2018-09-14 06:32] VITALS: BP 154/80
--- NOTE | 2018-09-14 08:10 | EKG REPORT ---
SEVERITY:- ABNORMAL ECG - SINUS RHYTHM IVCD, CONSIDER ATYPICAL RBBB : Confirmed by: Carlos Albarran MD 14-Sep-2018 08:10:12
== END 2018-09-14 05:45 | disposition home or self-care (01) ==
LOC: ER 00:08
DX: R07.9 Chest pain, unspecified (principal); R06.02 Shortness of breath; E66.9 Obesity, unspecified; Z86.718 Personal history of other venous thrombosis and embolism; Z86.711 Personal history of pulmonary embolism
CPT/HCPCS: 36415; 71045; 80053; 84484; 85025; 93005; 93010; 99284

== ENCOUNTER → 2018-10-17 | Outpatient (CLI) | payer BC ==
--- NOTE | 2018-10-17 11:04 | RADIOLOGY REPORT (SQ) ---
EXAM DESCRIPTION: CT CHEST WITH COMPLETED DATE/TIME: 10/17/2018 9:54 am REASON FOR STUDY: R93.89 ABNORMAL FINDINGS ON DX IMAGING OF [facility] BODY STRUCTURES R93.89 ABNORMAL FIN DINGS ON DX IMAGING OF OT BODY STRUCTURE COMPARISON: Chest films 03/04/2014, 12/07/2016, 08/17/2018 TECHNIQUE: CT scan of the chest performed using helical scanning technique with dynamic intravenous contrast injection. Images reviewed with lung, soft tissue and bone windows. Reconstructed coronal and sagittal MPR and MIP images reviewed. All images stored on PACS. All CT scanners at this facility use dose modulation, iterative reconstruction, and/or weight based d osing when appropriate to reduce radiation dose to as low as reasonably achievable (ALARA). [facility]: Dose Right [facility]: CareDose [facility]: Dose Right [facility]: Teradose 4D [facility]: ODIN CONTRAST TYPE AND DOSE: contrast/concentration: Isovue 350.00 mg/ml; Total Contrast Delivered: 80.0 ml; Total Saline Delivered: 55.0 ml RENAL FUNCTION: Creatinine 0.9 RADIATION DOSE: CT Rad equipment meets quality standard of care and radiation dose reduction techniq ues were employed. CTDIvol: 19.5 mGy. DLP: 818 mGy-cm. . LIMITATIONS: The study was performed with routine chest protocol, not CT angio protocol. FINDINGS: LUNGS AND PLEURA: No opacities, nodules, masses. No pneumothorax. No effusions. HILAR AND MEDIASTINAL STRUCTURES: No identified masses or abnormal nodes. HEART AND VASCULAR STRUCTURES: No large emboli in the distal right or distal left main pulmonary veronica rand. No thoracic aortic dissection. HARDWARE: None in the chest. UPPER ABDOMEN: Fatty liver. Limited exam. THYROID AND OTHER SOFT TISSUES: No masses. No adenopathy. BONES: No significant finding. OTHER: No other significant finding. IMPRESSION: Large emboli in the distal right and left main pulmonary artery seen on 08/27/2018 have r esolved. TECHNICAL DOCUMENTATION: JOB ID: [id number] Quality ID # [id number]: Final reports with documentation of one or more dose reduction techniques (e.g., Au tomated exposure control, adjustment of the mA and/or kV according to patient size, use of iterative reconstruction technique) 2010 [employer]- All Rights Reserved Reading location - IP/workstation name: [email or web address]
== END ==
LOC: RAD 09:12
PROVIDERS: ATTEND Internal Medicine Hematology & Oncology
DX: I26.99 Other pulmonary embolism without acute cor pulmonale (principal); R93.89 Abnormal findings on diagnostic imaging of other specified body structures
CPT/HCPCS: 71260; 82565

== ENCOUNTER 2019-10-26 07:23 | Emergency (ER) | payer BC ==
[2019-10-26 08:49] LABS: ABSOLUTE EOSINOPHILS # (AUTO) 0.2 10^3/uL (0.0-0.6); ABSOLUTE LYMPHOCYTES (AUTO) 1.4 10^3/uL (0.5-4.7); ABSOLUTE MONOCYTES (AUTO) 0.4 10^3/uL (0.1-1.4); ABSOLUTE NEUT (AUTO) 4.6 10^3/uL (1.7-8.2); BASOPHILS % (AUTO) 0.6 % (0-2); EOSINOPHILS % (AUTO) 3.3 % (0-6); HEMOGLOBIN 14.1 g/dL (13.5-17.0); LYMPHOCYTES % (AUTO) 21.3 % (13-45); MEAN CORPUSCULAR HEMOGLOBIN 29.8 pg (27.0-33.4); MEAN CORPUSCULAR HGB CONC 35.1 g/dL (32.0-36.0); MEAN CORPUSCULAR VOLUME 85 fl (80-97); MONOCYTES % (AUTO) 5.5 % (3-13); PLATELET COUNT 183 10^3/uL (150-450); RED BLOOD COUNT 4.71 10^6/uL (4.35-5.55); RED CELL DISTRIBUTION WIDTH 13.9 % (11.5-14.0); SEGMENTED NEUTROPHILS % (AUTO) 69.3 % (42-78); TOTAL CELLS COUNTED % (AUTO) 100 %; WHITE BLOOD COUNT 6.6 10^3/uL (4.0-10.5)
--- NOTE | 2019-10-26 09:02 | ER Document Report ---
ED General - General Chief Complaint: Back Pain Stated Complaint: ABDOMINAL PAIN/VOMITING/DIARRHEA/CONSTIPATION Time Seen by Provider: 10/26/19 08:18 Primary Care Provider: ENDA BERNARD MD [Primary Care Provider] - Follow up as needed TRAVEL OUTSIDE OF THE [place] IN LAST 30 DAYS: No - HPI Notes: Chief complaint: Left flank pain, abdominal pain and nausea 34-year-old male with prior history of sleeve gastrectomy performed within the last year presents with symptoms as above onset overnight. Patient has not had prior renal stones but was concerned he might have a stone. Also notes that his mother has a history of renal cell carcinoma. Patient reports 9/10 level of intensity when the pain is maximal and says it comes in waves. Presently he is about 2/10 and declines pain medication currently. Denies fever, chills, dysuria or hematuria. - Related Data Allergies/Adverse Reactions: No Known Allergies Allergy (Verified 08/27/18 16:58) Home Medications: acid power washer. zyrtec. zoloft. gabapentin Past Medical History - General Information source: Patient, [facility] Records - Social History Smoking Status: Never Smoker Chew tobacco use (# tins/day): No Frequency of alcohol use: None Drug Abuse: None Lives with: Family Family History: Other - Mother has a history of renal cell carcinoma Patient has suicidal ideation: No Patient has homicidal ideation: No - Past Medical History Cardiac Medical History: Reports: Hx DVT, Hx Hypertension - LISINOPRIL, Hx Pulmonary Embolism - Previously anticoagulated and this was stopped within the last 6 months by Denies: Hx Coronary Artery Disease, Hx Heart Attack Pulmonary Medical History: Reports: Hx Pneumonia - YRS AGO, Hx Sleep Apnea Denies: Hx Asthma, Hx COPD Comment Only: Hx Bronchitis - H/O FREQUENT BRONCHITIS Neurological Medical History: Denies: Hx Cerebrovascular Accident, Hx Seizures Endocrine Medical History: Denies: Hx Diabetes Mellitus Type 1, Hx Diabetes Mellitus Type 2, Hx Hyperthyroidism, Hx Hypothyroidism Renal/ Medical History: Denies: Hx Peritoneal Dialysis GI Medical History: Reports: Hx Gastroesophageal Reflux Disease. Denies: Hx Cirrhosis, Hx Hepatitis Musculoskeletal Medical History: Reports Hx Arthritis - R SHOULDER, Denies Hx Gout Skin Medical History: Denies Hx Eczema, Denies Hx Psoriasis Psychiatric Medical History: Reports: Hx Depression Infectious Medical History: Denies: Hx Hepatitis Past Surgical History: Reports: Hx Orthopedic Surgery - Bilateral carpal tunnel release, Other - Previous sleeve gastrectomy - Immunizations Hx Diphtheria, Pertussis, Tetanus Vaccination: Yes Review of Systems - Review of Systems Notes: Constitutional: Negative for fever. HENT: Negative for sore throat. Eyes: Negative for visual changes. Cardiovascular: Negative for chest pain. Respiratory: Negative for shortness of breath. Gastrointestinal: As per HPI. Genitourinary: As per HPI. Musculoskeletal: Otherwise negative. Skin: Negative for rash. Neurological: Negative for headaches, weakness or numbness. 10 point ROS negative except as marked above and in HPI. Physical Exam - Vital signs Vitals: Temp Pulse Resp BP Pulse Ox 98.6 F 50 L 16 131/68 H 99 10/26/19 07:28 10/26/19 07:28 10/26/19 07:28 10/26/19 07:28 10/26/19 07:28 - Notes Notes: GENERAL: Well-developed well-nourished appearing in no acute distress. SKIN: Good turgor no rashes. HEAD: Normocephalic atraumatic. EYES: PERRLA. EOMI. Conjunctivae and sclerae clear. EARS: CANALS AND TMS CLEAR. NOSE: CLEAR. MOUTH: Moist mucosa. Good dentition. No stridor or edema. No drooling. NECK: Supple. No masses or thyromegaly. No adenopathy. Carotids 2+ without bruits. No JVD. BACK: Symmetrical without tenderness. CHEST: Respirations unlabored. Breath sounds clear and symmetrical. HEART: Regular rhythm. No murmur gallop or rub. ABDOMEN: Healed laparoscopy scars present. Soft nontender without masses, organomegaly or rebound. Bowel sounds normally active. No bruits. GENITALIA: Deferred. EXTREMITIES: No edema. No calf tenderness. Cap refill less than 1.5 seconds. Dorsalis pedis and posterior tibial pulses 3+ and symmetrical. NEUROLOGICAL: GCS 15. Alert and oriented x3. Normal gait. Fluent speech. Cranial nerves II through XII intact. Sensorimotor and cerebellar normal. Normal tone. PSYCHIATRIC: Appropriate affect. Course - Re-evaluation Re-evalutation: 10/26/19 09:03 I would have high level of suspicion for renal colic in this patient and have requested a noncontrast CT abdomen and pelvis. He is currently comfortable and has declined pain medication. 03/12/20 11:50 Patient is remained comfortable in the ED. His labs are unremarkable. We talked at some length about avoiding recurrent renal stones by improved hydration etc. He is encouraged to filter his urine and to save any stone or gravel material that he passes. We provided him the name of a urologist for outpatient follow-up and he may also follow-up with his primary care doctor. Encouraged increase oral fluid intake. Given the fact that he is relatively pain-free now and that he has had previous gastric sleeve procedure I advised use of Tylenol only at home as needed and return here for new or worsening symptoms. We will also prescribe some Zofran. He was offered and declined a work note. - Vital Signs Vital signs: Temp Pulse Resp BP Pulse Ox 98.6 F 50 L 16 131/68 H 99 10/26/19 07:28 10/26/19 07:28 10/26/19 07:28 10/26/19 07:28 10/26/19 07:28 - Laboratory Result Diagrams: 10/26/19 08:25 10/26/19 08:25 Laboratory results interpreted by me: 10/26/19 10:15 Urine Protein >=500 H Urine Ketones TRACE H Urine Blood LARGE H Urine Urobilinogen 2.0 H Urine Ascorbic Acid 40 H - Diagnostic Test Radiology reviewed: Reports reviewed - Radiologist reports mild dilatation of the left ureter with no obstructing calculus seen which is felt to be consistent with small stone recently passed in the bladder. Discharge - Discharge Clinical Impression: Ureterolithiasis with renal colic left Condition: Stable Disposition: HOME, SELF-CARE Additional Instructions: Kidney Stone You are passing or have passed a kidney stone. These stones are usually due to increased calcium or uric acid concentrations in your urine. Stones within the kidney itself are not painful. The pain occurs as the stone leaves the kidney to pass down the long tube, called the ureter, leading to the bladder. If the stone is small, it will usually pass by itself. Most patients can pass the stone at home. You will usually receive medications for pain, nausea or vomiting, and sometimes a medication to assist in passing the kidney stone. However, if the pain is very severe or if vomiting prevents you from taking oral pain medications, you may need to return for further treatment. Drink three or four quarts of fluids per day. You will be given pain medication (if needed) and urine strainers. Strain all your urine to see if the stone passes. If your doctor has asked you to bring the stone in for analysis, return with the stone once it has passed. Return if pain or vomiting become severe, if you develop a high fever, if you are unable to pass your urine, or if other unusual symptoms occur. Return here as needed for new or worsening symptoms: Pain that is worsening or unimproved Uncontrolled vomiting High fever or shaking chills Overall worsening Prescriptions: Ondansetron [Zofran Odt 4 mg Tablet] 1 - 2 tab PO Q4H PRN #15 tab.rapdis PRN Reason: For Nausea/Vomiting Referrals: NEDA BERNARD MD [Primary Care Provider] - Follow up as needed
[2019-10-26 09:04] LABS: ALBUMIN 4.1 g/dL (3.5-5.0); ALKALINE PHOSPHATASE 84 U/L (38-126); ANION GAP 8 (5-19); ASPARTATE AMINO TRANSFERASE 19 U/L (17-59); BILIRUBIN,DIRECT 0.2 mg/dL (0.0-0.4); BILIRUBIN,TOTAL 0.9 mg/dL (0.2-1.3); BLOOD UREA NITROGEN 13 mg/dL (7-20); CALCIUM 9.5 mg/dL (8.4-10.2); CARBON DIOXIDE 30 mmol/L (22-30); CHLORIDE 103 mmol/L (98-107); GLUCOSE 90 mg/dL (75-110); POTASSIUM 4.5 mmol/L (3.6-5.0)
--- NOTE | 2019-10-26 10:26 | RADIOLOGY REPORT (SQ) ---
EXAM DESCRIPTION: CT ABD/PELVIS NO ORAL OR IV COMPLETED DATE/TIME: 10/26/2019 10:06 am REASON FOR STUDY: left flank/abd. pain COMPARISON: None. TECHNIQUE: CT scan of the abdomen and pelvis performed without intravenous or oral contrast. Images reviewed with lung, soft tissue, and bone windows. Reconstructed coronal and sagittal MPR images revi ewed. All images stored on PACS. All CT scanners at this facility use dose modulation, iterative reconstruction, and/or weight based d osing when appropriate to reduce radiation dose to as low as reasonably achievable (ALARA). [facility]: Dose Right [facility]: CareDose [facility]: Dose Right [facility]: Teradose 4D [facility]: [employer] RADIATION DOSE: CT Rad equipment meets quality standard of care and radiation dose reduction techniq ues were employed. CTDIvol: 19.2 mGy. DLP: 1114 mGy-cm.mGy. LIMITATIONS: None. FINDINGS: LOWER CHEST: Prior gastric bypass. NON-CONTRASTED LIVER, SPLEEN, ADRENALS: Evaluation limited by lack of IV contrast. No identified sign ificant masses. PANCREAS: No masses. No peripancreatic inflammatory changes. GALLBLADDER: No identified stones by CT criteria. No inflammatory changes to suggest cholecystitis. RIGHT KIDNEY AND URETER: No suspicious masses. Assessment limited by lack of IV contrast. No signif icant calcifications. No hydronephrosis or hydroureter. LEFT KIDNEY AND URETER: No suspicious masses. Assessment limited by lack of IV contrast. No signifi cant calcifications. Mild hydronephrosis. AORTA AND RETROPERITONEUM: No aneurysm. IVC filter. BOWEL AND PERITONEAL CAVITY: No obvious masses or inflammatory changes. No free fluid. APPENDIX: Normal. PELVIS, BLADDER, AND ABDOMINAL WALL:2 mm stone dependent urinary bladder. BONES: No significant findings. OTHER: No other significant finding. IMPRESSION: Mild left hydronephrosis due to recent stone migration into the urinary bladder. COMMENT: Quality ID # [id number]: Final reports with documentation of one or more dose reduction techniques (e.g., Automated exposure control, adjustment of the mA and/or kV according to patient size, use of iterative reconstruction technique) TECHNICAL DOCUMENTATION: JOB ID: [id number] 2010 [employer]- All Rights Reserved Reading location - IP/workstation name: [email or web address]
[2019-10-26 10:34] LABS: APPEARANCE,URINE CLOUDY; BILIRUBIN,URINE NEGATIVE (NEGATIVE); COLOR,URINE AMBER; GLUCOSE, URINE NEGATIVE (NEGATIVE); KETONES,URINE TRACE mg/dL (NEGATIVE); LEUKOCYTE ESTERASE,URINE NEGATIVE (NEGATIVE); NITRITE,URINE NEGATIVE (NEGATIVE); PROTEIN,URINE >=500 mg/dL (NEGATIVE); URINE SPECIFIC GRAVITY 1.033
[2019-10-26 10:36] LABS: ADD MANUAL MICROSCOPIC YES
[2019-10-26 10:44] LABS: WBC,URINE 0-1 /HPF
[2019-10-26 10:45] LABS: BACTERIA,URINE 1+ /HPF; CALCIUM OXALATE CRYSTALS,UR FEW /HPF
[2019-10-26 12:16] VITALS: BP 116/60
== END 2019-10-26 12:20 | disposition home or self-care (01) ==
LOC: ER 07:23
DX: N13.2 Hydronephrosis with renal and ureteral calculous obstruction (principal); R10.9 Unspecified abdominal pain; I10 Essential (primary) hypertension; K21.9 Gastro-esophageal reflux disease without esophagitis; Z79.899 Other long term (current) drug therapy; Z98.84 Bariatric surgery status; R11.0 Nausea
CPT/HCPCS: 36415; 74176; 80053; 81001; 83690; 85025; 99284

== ENCOUNTER 2020-04-23 13:06 | Emergency (ER) | payer BC ==
--- NOTE | 2020-04-23 13:24 | ER Document Report ---
ED Medical Screen (RME) - General Chief Complaint: Leg Pain Stated Complaint: LEFT LEG PAIN, SWELLING Primary Care Provider: JEANINE SAENZ PA-C [Primary Care Provider] - Follow up as needed Mode of Arrival: Ambulatory Information source: Patient Notes: 35-year-old male presented to ED for complaint of pain to the left lower leg. He stated it started in the very lower leg he had on some tight boots so he loosen the legs. 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 He states they told him since he had a history of DVTs he needed to come to the emergency room right away. He is not on blood thinners at this time he was taken off of the blood thinners on February 07, 2019 when he had a gastrectomy. He states he does have a filter in the left leg. 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 Patient is alert oriented respirations regular nonlabored speaking in full sentences. I have greeted and performed a rapid initial assessment of this patient. A comprehensive ED assessment and evaluation of the patient, analysis of test results and completion of medical decision making process will be conducted by an additional ED providers. TRAVEL OUTSIDE OF THE [place] IN LAST 30 DAYS: No - Related Data Allergies/Adverse Reactions: No Known Allergies Allergy (Verified 04/23/20 13:15) Past Medical History - Social History Family history: Reviewed & Not Pertinent - Past Medical History Cardiac Medical History: Reports: Hx DVT, Hx Hypertension - LISINOPRIL, Hx Pulmonary Embolism - Previously anticoagulated and this was stopped within the last 6 months by Denies: Hx Coronary Artery Disease, Hx Heart Attack Pulmonary Medical History: Reports: Hx Pneumonia - YRS AGO, Hx Sleep Apnea Denies: Hx Asthma, Hx COPD Comment Only: Hx Bronchitis - H/O FREQUENT BRONCHITIS Neurological Medical History: Denies: Hx Cerebrovascular Accident, Hx Seizures Endocrine Medical History: Denies: Hx Diabetes Mellitus Type 1, Hx Diabetes Mellitus Type 2, Hx Hyperthyroidism, Hx Hypothyroidism Renal/ Medical History: Denies: Hx Peritoneal Dialysis GI Medical History: Reports: Hx Gastroesophageal Reflux Disease. Denies: Hx Cirrhosis, Hx Hepatitis Musculoskeltal Medical History: Reports Hx Arthritis - R SHOULDER, Denies Hx Gout Skin Medical History: Denies Hx Eczema, Denies Hx Psoriasis Psychiatric Medical History: Reports: Hx Depression Infectious Medical History: Denies: Hx Hepatitis Past Surgical History: Reports: Hx Orthopedic Surgery - Bilateral carpal tunnel release, Other - Previous sleeve gastrectomy - Immunizations Hx Diphtheria, Pertussis, Tetanus Vaccination: Yes Physical Exam - Vital signs Vitals: Temp Pulse Resp BP Pulse Ox 98.9 F 55 L 16 137/64 H 98 04/23/20 13:12 04/23/20 13:12 04/23/20 13:12 04/23/20 13:12 04/23/20 13:12 Course - Vital Signs Vital signs: Temp Pulse Resp BP Pulse Ox 98.9 F 55 L 16 137/64 H 98 04/23/20 13:12 04/23/20 13:12 04/23/20 13:12 04/23/20 13:12 04/23/20 13:12 Doctor's Discharge - Discharge Referrals: JEANINE SAENZ PA-C [Primary Care Provider] - Follow up as needed
[2020-04-23 13:47] LABS: ABSOLUTE BASOPHILS # (AUTO) 0.1 10^3/uL (0.0-0.2); ABSOLUTE EOSINOPHILS # (AUTO) 0.2 10^3/uL (0.0-0.6); ABSOLUTE LYMPHOCYTES (AUTO) 1.6 10^3/uL (0.5-4.7); ABSOLUTE MONOCYTES (AUTO) 0.5 10^3/uL (0.1-1.4); ABSOLUTE NEUT (AUTO) 4.7 10^3/uL (1.7-8.2); BASOPHILS % (AUTO) 0.9 % (0-2); EOSINOPHILS % (AUTO) 3.5 % (0-6); HEMATOCRIT 40.9 % (37.9-51.0); HEMOGLOBIN 14.5 g/dL (13.5-17.0); LYMPHOCYTES % (AUTO) 22.6 % (13-45); MEAN CORPUSCULAR HEMOGLOBIN 30.3 pg (27.0-33.4); MEAN CORPUSCULAR HGB CONC 35.4 g/dL (32.0-36.0); MEAN CORPUSCULAR VOLUME 86 fl (80-97); MONOCYTES % (AUTO) 6.6 % (3-13); PLATELET COUNT 197 10^3/uL (150-450); RED BLOOD COUNT 4.78 10^6/uL (4.35-5.55); RED CELL DISTRIBUTION WIDTH 13.8 % (11.5-14.0); SEGMENTED NEUTROPHILS % (AUTO) 66.4 % (42-78); TOTAL CELLS COUNTED % (AUTO) 100 %; WHITE BLOOD COUNT 7.1 10^3/uL (4.0-10.5)
[2020-04-23 14:05] LABS: INTERNATIONAL RATION (INR) 1.05; PARTIAL THROMBOPLASTIN TIME 31.9 SEC (23.5-35.8); PROTHROMBIN TIME 13.9 SEC (11.4-15.4)
[2020-04-23 14:08] LABS: ALBUMIN 4.4 g/dL (3.5-5.0); ALKALINE PHOSPHATASE 88 U/L (38-126); ANION GAP 8 (5-19); ASPARTATE AMINO TRANSFERASE 25 U/L (17-59); BILIRUBIN,DIRECT 0.2 mg/dL (0.0-0.4); BILIRUBIN,TOTAL 0.8 mg/dL (0.2-1.3); BLOOD UREA NITROGEN 20 mg/dL (7-20); CALCIUM 9.8 mg/dL (8.4-10.2); CARBON DIOXIDE 29 mmol/L (22-30); CHLORIDE 104 mmol/L (98-107); GLUCOSE 77 mg/dL (75-110); POTASSIUM 5.2 mmol/L (3.6-5.0); TOTAL PROTEIN 6.7 g/dL (6.3-8.2)
--- NOTE | 2020-04-23 15:18 | ER Document Report ---
ED Medical Screen (RME) - General Chief Complaint: Leg Pain Stated Complaint: LEFT LEG PAIN, SWELLING Time Seen by Provider: 04/23/20 15:17 Primary Care Provider: JEANINE SAENZ PA-C [Primary Care Provider] - Follow up as needed Mode of Arrival: Ambulatory Information source: Patient, Relative - Notes: 04/23/20 13:20 - ED Nursing [facility] by [facility] Num: [id number] : 1985 Patient Age: 35 pt comes to ed from home via pov brought by self for c/o left calf pain constant ache 1/5 noted onset this am. pain is worse with flexion of left. 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 off coags since january 2019 when sleeve gastrectomy. took 800mg ibuprofen this am with no relief. denies cp or sob. Initialized on 04/23/20 13:20 - END OF NOTE ED Medical Screen (Richard morataya) - General Chief Complaint: Leg Pain Stated Complaint: LEFT LEG PAIN, SWELLING Primary Care Provider: JEANINE SAENZ PA-C [Primary Care Provider] - Follow up as needed Mode of Arrival: Ambulatory Information source: Patient Notes: 35-year-old male presented to ED for complaint of pain to the left lower leg. He stated it started in the very lower leg he had on some tight boots so he loosen the legs. He states when the loosening the Lasix did not help he took the boot off that did not help so he went to the nurse at the [facility] where he [facility]. He states they told him since he had a history of DVTs he needed to come to the emergency room right away. He is not on blood thinners at this time he was taken off of the blood thinners on February 07, 2019 when he had a gastrectomy. He states he does have a filter in the left leg. 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 Patient is alert oriented respirations regular nonlabored speaking in full sentences. MY NOTES TODAY 36-year-old male arrives with POV with his TRAVEL OUTSIDE OF THE [place] IN LAST 30 DAYS: No - HPI Onset: This morning - Related Data Allergies/Adverse Reactions: No Known Allergies Allergy (Verified 04/23/20 13:15) Home Medications: gabapentin, protonix, certrizine, sertraline, restasis, mens mv, vit d and c, iron, potassium, magnesium Past Medical History - Social History Chew tobacco use (# tins/day): No Frequency of alcohol use: Rare Drug Abuse: None Family history: Reviewed & Not Pertinent - Past Medical History Cardiac Medical History: Reports: Hx DVT, Hx Hypertension - LISINOPRIL, Hx Pulmonary Embolism - Previously anticoagulated and this was stopped within the last 6 months by Denies: Hx Coronary Artery Disease, Hx Heart Attack Pulmonary Medical History: Reports: Hx Pneumonia - YRS AGO, Hx Sleep Apnea Denies: Hx Asthma, Hx COPD Comment Only: Hx Bronchitis - H/O FREQUENT BRONCHITIS Neurological Medical History: Denies: Hx Cerebrovascular Accident, Hx Seizures Endocrine Medical History: Denies: Hx Diabetes Mellitus Type 1, Hx Diabetes Mellitus Type 2, Hx Hyperthyroidism, Hx Hypothyroidism Renal/ Medical History: Denies: Hx Peritoneal Dialysis GI Medical History: Reports: Hx Gastroesophageal Reflux Disease. Denies: Hx Cirrhosis, Hx Hepatitis Musculoskeltal Medical History: Reports Hx Arthritis - R SHOULDER, Denies Hx Gout Skin Medical History: Denies Hx Eczema, Denies Hx Psoriasis Psychiatric Medical History: Reports: Hx Depression Infectious Medical History: Denies: Hx Hepatitis Past Surgical History: Reports: Hx Orthopedic Surgery - Bilateral carpal tunnel release, Other - Previous sleeve gastrectomy - Immunizations Hx Diphtheria, Pertussis, Tetanus Vaccination: Yes Physical Exam - Vital signs Vitals: Temp Pulse Resp BP Pulse Ox 98.9 F 55 L 16 137/64 H 98 04/23/20 13:12 04/23/20 13:12 04/23/20 13:12 04/23/20 13:12 04/23/20 13:12 Course - Vital Signs Vital signs: Temp Pulse Resp BP Pulse Ox 97.6 F 55 L 18 122/62 96 04/23/20 16:11 04/23/20 16:11 04/23/20 16:11 04/23/20 16:11 04/23/20 16:11 - Laboratory Result Diagrams: 04/23/20 13:35 04/23/20 13:35 Laboratory results interpreted by me: 04/23/20 13:35 Potassium 5.2 H Doctor's Discharge - Discharge Clinical Impression: Left leg DVT Condition: Good Disposition: HOME, SELF-CARE Additional Instructions: Try to avoid extended flexion of knees. Also advised gentle walking and lukewarm water baths. Avoid any trauma to your posterior knee. Follow-up with Dr. Barber. Return to ER as needed take medicines as directed Prescriptions: Rivaroxaban [Xarelto 15 mg Tablet] 15 mg PO BID #40 tablet Forms: Return to Work Referrals: JEANINE SAENZ PA-C [Primary Care Provider] - Follow up as needed
[2020-04-23] MEDS ORDERED: RIVAROXABAN 15 MG TABLET PO ONE (15:44)
[2020-04-23] MEDS ORDERED: ENOXAPARIN SODIUM INJ 150 MG/1 ML DISP.SYRIN SUBCUT SCH (15:45)
[2020-04-23 16:19] VITALS: BP 122/62
--- NOTE | 2020-04-23 16:27 | RADIOLOGY REPORT (SQ) ---
EXAM DESCRIPTION: VENOUS UNILATERAL LOWER IMAGES COMPLETED DATE/TIME: 04/23/2020 4:15 pm REASON FOR STUDY: Pain in left leg has a big history of DVT and PE COMPARISON: None. TECHNIQUE: Dynamic and static stewart scale and color images acquired of the left leg venous system. Se lected spectral images acquired with additional compression and augmentation maneuvers. The contralat eral common femoral vein and saphenofemoral junction were also imaged. Images stored on PACS. LIMITATIONS: None. FINDINGS: COMMON FEMORAL: Normal phasicity, compression and augmentation. No visualized echogenic ma terial on stewart scale. No defects on color images. FEMORAL: Normal compression and augmentation. No visualized echogenic material on stewart scale. No defe cts on color images. POPLITEAL: Nonocclusive thrombus. CALF VESSELS: Normal compression, augmentation. No visualized echogenic material on stewart scale. No de fects on color images. GSV and SSV: Normal compression, augmentation. No visualized echogenic material on stewart scale. No def ects on color images. ANY DEEP VENOUS INSUFFICIENCY: Not evaluated. ANY EVIDENCE OF POPLITEAL CYST: No. OTHER: No other significant finding. CONTRALATERAL COMMON FEMORAL VEIN AND SAPHENOFEMORAL JUNCTION: Normal phasicity, compression and augmentation. No visualized echogenic material on stewart scale. No de fects on color images. IMPRESSION: Acute deep vein thrombosis popliteal vein. TECHNICAL DOCUMENTATION: JOB ID: [id number] 2010 [employer]- All Rights Reserved Reading location - IP/workstation name: [email or web address]
== END 2020-04-23 16:25 | disposition home or self-care (01) ==
LOC: ER 13:06
DX: I82.432 Acute embolism and thrombosis of left popliteal vein (principal); M79.605 Pain in left leg; I10 Essential (primary) hypertension; Z86.711 Personal history of pulmonary embolism
CPT/HCPCS: 99284; 36415; 85025; 85610; 85730; 80053; 93971; J1650

== ENCOUNTER 2020-05-01 20:07 | Emergency (ER) | payer BC ==
--- NOTE | 2020-05-01 21:02 | ER Document Report ---
ED Cardiac - General Chief Complaint: Shortness Of Breath Stated Complaint: SHORTNESS OF BREATH Time Seen by Provider: 05/01/20 20:24 Primary Care Provider: JEANINE SAENZ PA-C [PHYSICIAN SOLAR MANAGER] - Follow up as needed Mode of Arrival: Ambulatory Notes: Patient presents complaining of chest discomfort that started around 930 this morning. Patient describes this as an achy pain that occasionally is sharp. Patient reports mild shortness of breath. Patient states he has had similar symptoms whenever he was previously diagnosed with a pulmonary embolism. Patient denies any cough, nausea or vomiting. Patient states that he was recently diagnosed with a DVT last week and was started on Xarelto. Patient reports having a previous IVC filter placed in January of last year. TRAVEL OUTSIDE OF THE [place] IN LAST 30 DAYS: No - HPI Patient complains to provider of: Chest pain, Shortness of breath Quality of pain: Achy Chest pain precipitating factors: At Rest Associated symptoms: denies: Abdominal pain, Dizziness, Nausea/vomiting Exacerbated by: Denies Relieved by: Nothing Similar symptoms previously: Yes Recently seen / treated by doctor: No - Related Data Allergies/Adverse Reactions: No Known Allergies Allergy (Verified 04/23/20 13:15) Past Medical History - General Information source: Patient - Social History Smoking Status: Former Smoker Frequency of alcohol use: None Drug Abuse: None Occupation: Law enforcement Lives with: Family Family History: Reviewed & Not Pertinent, Other - Mother has a history of renal cell carcinoma - Past Medical History Cardiac Medical History: Reports: Hx DVT, Hx Hypertension - Was taken off blood pressure medicine, Hx Pulmonary Embolism - Previously anticoagulated and this was stopped within the last 6 months by Denies: Hx Coronary Artery Disease, Hx Heart Attack Pulmonary Medical History: Reports: Hx Pneumonia - YRS AGO, Hx Sleep Apnea Denies: Hx Asthma, Hx COPD Comment Only: Hx Bronchitis - H/O FREQUENT BRONCHITIS Neurological Medical History: Denies: Hx Cerebrovascular Accident, Hx Seizures Endocrine Medical History: Denies: Hx Diabetes Mellitus Type 1, Hx Diabetes Mellitus Type 2, Hx Hyperthyroidism, Hx Hypothyroidism Renal/ Medical History: Denies: Hx Peritoneal Dialysis GI Medical History: Reports: Hx Gastroesophageal Reflux Disease. Denies: Hx Cirrhosis, Hx Hepatitis Musculoskeletal Medical History: Reports Hx Arthritis - R SHOULDER, Denies Hx Gout Skin Medical History: Denies Hx Eczema, Denies Hx Psoriasis Psychiatric Medical History: Reports: Hx Depression Infectious Medical History: Denies: Hx Hepatitis Past Surgical History: Reports: Hx Orthopedic Surgery - Bilateral carpal tunnel release, Other - sleeve gastrectomy - Immunizations Hx Diphtheria, Pertussis, Tetanus Vaccination: Yes Review of Systems - Review of Systems Constitutional: No symptoms reported EENT: No symptoms reported Cardiovascular: Chest pain. denies: Dizziness, Lightheaded Respiratory: Short of breath. denies: Cough Gastrointestinal: No symptoms reported. denies: Abdominal pain, Nausea, Vomiting Genitourinary: No symptoms reported Male Genitourinary: No symptoms reported Musculoskeletal: No symptoms reported. denies: Back pain, Muscle pain Skin: No symptoms reported Hematologic/Lymphatic: No symptoms reported Neurological/Psychological: No symptoms reported Physical Exam - Vital signs Vitals: Temp Pulse Resp BP Pulse Ox 98.5 F 59 L 20 151/68 H 99 05/01/20 20:13 05/01/20 20:13 05/01/20 20:13 05/01/20 20:13 05/01/20 20:13 - Notes Notes: PHYSICAL EXAMINATION: GENERAL: Well-appearing and in no acute distress. HEAD: Atraumatic, normocephalic. EYES: sclera anicteric, conjunctiva are normal. ENT: nares patent. Moist mucous membranes. NECK: Normal range of motion, supple without lymphadenopathy LUNGS: CTAB and equal. No wheezes rales or rhonchi. HEART: Regular rate and rhythm without murmurs ABDOMEN: Soft, nontender, normal bowel sounds, no guarding. EXTREMITIES: Normal range of motion, 1+ edema to left lower extremity. No cyanosis. BACK: No midline tenderness, no step-off or deformity. No CVA tenderness NEUROLOGICAL: Cranial nerves grossly intact. Normal speech. Normal gait. PSYCH: Normal mood, normal affect. SKIN: Warm, Dry, normal turgor, no rashes or lesions noted Course - Re-evaluation Re-evalutation: 05/01/20 22:06 Patient without any tachycardia or tachypnea, no hypoxia, patient without any increased respiratory effort. Patient with no elevation in initial troponin. Consulted with Dr. Le regarding patient presentation and patient's concern about his previous history of PE in the past. Patient does have an IVC filter that was placed last year and has been on Xarelto for the past [address] Le does not feel strongly that patient needs CT imaging as he has a filter, is anticoagulated and is without any symptoms worrisome for PE such as tachycardia, tachypnea and hypoxia. Dr. Le does agree with plan to co ntinue diagnostic evaluation to rule out any cardiac source for patient's symptoms. 05/02/20 00:59 Presentation of chest pain in an otherwise well appearing patient. Low clinical suspicion for ACS given clinical history, exam, EKG without ST elevations or depressions, and negative initial and delta troponin. HEART score less than or equal to 3. PE also seems unlikely given clinical history, absence of tachycardia tachypnea or hypoxia. Patient has a Elder filter and has been on anticoagulants for over a week. CXR without evidence of pneumothorax or pneumonia. No widened mediastinum. Chest pain in a patient without evidence of cardiac or other serious etiology on workup today. I discussed with patient that, based on their age, risk factors and emergency department testing today, the likelihood that their symptoms are related to a heart attack is very low. The patient demonstrates decision making capacity and has verbalized an understanding of these risks to me. Based on this, the patient has chosen to follow-up as an outpatient. Usual chest pain return precautions reviewed. The patient states understanding and agreement with this plan. 05/02/20 01:02 The patient was evaluated during the global Covid 19 pandemic, and that diagnosis was suspected/considered upon their initial presentation. Their evaluation, treatment and testing was consistent with current guidelines for patients who present with complaints or symptoms that may be related to Covid 19. - Vital Signs Vital signs: Temp Pulse Resp BP Pulse Ox 98.5 F 59 L 20 115/80 98 05/01/20 20:13 05/01/20 20:13 05/02/20 01:01 05/02/20 01:01 05/02/20 01:01 - Laboratory Result Diagrams: 05/01/20 20:40 05/01/20 20:40 Laboratory results interpreted by me: 05/01/20 20:40 BUN 23 H Glucose 137 H Labs- All tests 24 hr 05/01/20 05/01/20 05/01/20 20:40 20:40 20:40 WBC 8.4 RBC 4.92 Hgb 14.7 Hct 42.3 MCV 86 MCH 29.9 MCHC 34.7 RDW 13.6 Plt Count 204 Lymph % (Auto) 23.7 [place] % (Auto) 4.6 Eos % (Auto) 3.1 Baso % (Auto) 0.7 Absolute Neuts (auto) 5.7 Absolute Lymphs (auto) 2.0 Absolute Monos (auto) 0.4 Absolute Eos (auto) 0.3 Absolute Basos (auto) 0.1 Seg Neutrophils % 67.9 Sodium 138.7 Potassium 4.0 Chloride 104 Carbon Dioxide 26 Anion Gap 9 BUN 23 H Creatinine 0.74 Est GFR ( Amer) > 60 Est GFR (MDRD) Non-Af > 60 Glucose 137 H Calcium 9.3 Total Bilirubin 0.7 Direct Bilirubin 0.3 Neonat Total Bilirubin Not Reportable Neonat Direct Bilirubin Not Reportable Neonat Indirect Bili Not Reportable AST 25 ALT 19 Alkaline Phosphatase 115 Troponin I < 0.012 NT-Pro-B Natriuret Pep 19 Total Protein 7.2 Albumin 4.6 05/01/20 23:59 WBC RBC Hgb Hct MCV MCH MCHC RDW Plt Count Lymph % (Auto) [place] % (Auto) Eos % (Auto) Baso % (Auto) Absolute Neuts (auto) Absolute Lymphs (auto) Absolute Monos (auto) Absolute Eos (auto) Absolute Basos (auto) Seg Neutrophils % Sodium Potassium Chloride Carbon Dioxide Anion Gap BUN Creatinine Est GFR ( Amer) Est GFR (MDRD) Non-Af Glucose Calcium Total Bilirubin Direct Bilirubin Neonat Total Bilirubin Neonat Direct Bilirubin Neonat Indirect Bili AST ALT Alkaline Phosphatase Troponin I < 0.012 NT-Pro-B Natriuret Pep Total Protein Albumin - Diagnostic Test Radiology reviewed: Reports reviewed - EKG Interpretation by Ia EKG shows normal: Sinus rhythm Rate: Normal Rhythm: NSR When compared to previous EKG there are: Previous EKG unavailable Additional EKG results interpreted by me: 05/01/20 22:09 Sinus rhythm with a rate of 53, QTC 406, no acute ischemic changes Discharge - Discharge Clinical Impression: Encounter for screening laboratory testing for COVID-19 virus Chest pain Qualifiers: Chest pain type: unspecified Qualified Code(s): R07.9 - Chest pain, unspecified Condition: Stable Disposition: HOME, SELF-CARE Instructions: COVID-19 Guidance for Persons Under Investigation, Chest Pain of Unclear Cause ([facility]) Additional Instructions: Return immediately for any new or worsening symptoms Followup with your primary care provider, call tomorrow to make a followup appointment Follow-up with your as400 consultant for recheck, call tomorrow for an appointment You were seen today for chest pain. The exact cause of your pain is unclear. However, based on your cardiac enzyme testing, chest x-ray, and EKG it does not appear that it is from an immediately life-threatening cause at this time. Although your testing here is normal is critical that you follow-up with your primary care physician for continued evaluation of this chest pain and possible stress testing. I recommended you see your physician within the next 24-48 hours to be evaluated for consideration of a stress test. Please return to [facility] department immediately if you have worsening of your chest pain, shortness of breath, vomiting, become unable to exert yourself due to pain or difficulty breathing, you pass out, or have any pain that radiates into your arms, jaw, or back. Please also return if you have any additional symptoms that are concerning to you. Forms: Return to Work Referrals: JEANINE SAENZ PA-C [PHYSICIAN SOLAR MANAGER] - Follow up as needed
[2020-05-01 21:10] LABS: ABSOLUTE BASOPHILS # (AUTO) 0.1 10^3/uL (0.0-0.2); ABSOLUTE EOSINOPHILS # (AUTO) 0.3 10^3/uL (0.0-0.6); ABSOLUTE MONOCYTES (AUTO) 0.4 10^3/uL (0.1-1.4); ABSOLUTE NEUT (AUTO) 5.7 10^3/uL (1.7-8.2); BASOPHILS % (AUTO) 0.7 % (0-2); EOSINOPHILS % (AUTO) 3.1 % (0-6); HEMATOCRIT 42.3 % (37.9-51.0); HEMOGLOBIN 14.7 g/dL (13.5-17.0); LYMPHOCYTES % (AUTO) 23.7 % (13-45); MEAN CORPUSCULAR HEMOGLOBIN 29.9 pg (27.0-33.4); MEAN CORPUSCULAR HGB CONC 34.7 g/dL (32.0-36.0); MEAN CORPUSCULAR VOLUME 86 fl (80-97); MONOCYTES % (AUTO) 4.6 % (3-13); PLATELET COUNT 204 10^3/uL (150-450); RED BLOOD COUNT 4.92 10^6/uL (4.35-5.55); RED CELL DISTRIBUTION WIDTH 13.6 % (11.5-14.0); SEGMENTED NEUTROPHILS % (AUTO) 67.9 % (42-78); TOTAL CELLS COUNTED % (AUTO) 100 %; WHITE BLOOD COUNT 8.4 10^3/uL (4.0-10.5)
[2020-05-01 21:27] LABS: ALBUMIN 4.6 g/dL (3.5-5.0); ALKALINE PHOSPHATASE 115 U/L (38-126); ANION GAP 9 (5-19); ASPARTATE AMINO TRANSFERASE 25 U/L (17-59); BILIRUBIN,DIRECT 0.3 mg/dL (0.0-0.4); BILIRUBIN,TOTAL 0.7 mg/dL (0.2-1.3); BLOOD UREA NITROGEN 23 mg/dL (7-20); CALCIUM 9.3 mg/dL (8.4-10.2); CARBON DIOXIDE 26 mmol/L (22-30); CHLORIDE 104 mmol/L (98-107); GLUCOSE 137 mg/dL (75-110); TOTAL PROTEIN 7.2 g/dL (6.3-8.2)
[2020-05-01 21:39] LABS: NT PRO BNP 19 pg/mL (<125)
[2020-05-01 21:40] LABS: TROPONIN I < 0.012 ng/mL
--- NOTE | 2020-05-01 22:03 | RADIOLOGY REPORT (SQ) ---
EXAM DESCRIPTION: [facility]: XR CHEST 1 VIEW CLINICAL HISTORY: 35 years Male; cp, sob; COMPARISON: 09/14/2018 FINDINGS: Lungs: Lungs are clear, with no focal infiltrate, pneumothorax, or pleural effusion. Mediastinum: Mediastinum is within normal limits for this positioning. Bones: Bony structures are unremarkable. IMPRESSION: 1. No acute pulmonary findings.
[2020-05-02 01:24] VITALS: BP 115/80
--- NOTE | 2020-05-02 09:19 | EKG REPORT ---
SEVERITY:- ABNORMAL ECG - SINUS RHYTHM NONSPECIFIC INTRAVENTRICULAR CONDUCTION DELAY : Confirmed by: Jarad Gotti 02-May-2020 09:17:37
== END 2020-05-02 01:44 | disposition home or self-care (01) ==
LOC: ER 20:07
DX: R07.9 Chest pain, unspecified (principal); I82.409 Acute embolism and thrombosis of unspecified deep veins of unspecified lower extremity; R06.02 Shortness of breath; I10 Essential (primary) hypertension; Z95.828 Presence of other vascular implants and grafts; Z86.711 Personal history of pulmonary embolism; Z87.891 Personal history of nicotine dependence; Z87.01 Personal history of pneumonia (recurrent); Z20.828 Contact with and (suspected) exposure to other viral communicable diseases
CPT/HCPCS: 93005; 99285; 36415; 85025; 80053; 84484; 83880; 71045; 93010; U0003; C9803; 87635

== ENCOUNTER 2020-05-08 07:15 | Emergency (ER) | payer BC ==
--- NOTE | 2020-05-08 08:35 | ER Document Report ---
ED Extremity Problem, Lower - General Chief Complaint: Leg Pain Stated Complaint: RIGHT LEG PAIN Time Seen by Provider: 05/08/20 08:26 Primary Care Provider: ORLANDO PINO MD [Primary Care Provider] - Follow up as needed Notes: CHIEF COMPLAINT: Right leg and calf pain today HPI: 35-year-old male history of DVT and PE who is currently being treated for an active DVT in the left popliteal presenting with right ankle and calf pain that began yesterday and today. No chest pain shortness of breath. Patient is concerned about another blood clot. Patient was not on blood thinners prior to the DVT in the left leg as he does have an IVC filter and had been taken off of blood thinners for a gastric sleeve surgery last year. Patient denies swelling of the leg. Patient follows with Dr. Barber hematology ROS: See HPI - all other systems were reviewed and are otherwise negative Constitutional: no fever Eyes: no drainage, no blurred vision ENT: no runny nose, no sore throat Cardiovascular: no chest pain Resp: no SOB, no cough GI: no vomiting, no diarrhea, no abdominal pain : no dysuria Integumentary: no rash Allergy: no hives Musculoskeletal: + extremity pain or swelling Neurological: no numbness/tingling, no weakness MEDICATIONS: I agree with the patient medications as charted by the RN. ALLERGIES: I agree with the allergies as charted by the RN. PAST MEDICAL HISTORY/PAST SURGICAL HISTORY: Reviewed and agree as charted by RN. SOCIAL HISTORY: Reviewed and agree as charted by RN. FAMILY HISTORY: No significant familial comorbid conditions directly related to patient complaint EXAM: Reviewed vital signs as charted by RN. CONSTITUTIONAL: Alert and oriented and responds appropriately to questions. Well-appearing; well-nourished HEAD: Normocephalic; atraumatic EYES: Conjunctivae clear, sclerae non-icteric ENT: normal nose; no rhinorrhea; moist mucous membranes NECK: Supple without meningismus CARD: RRR; no murmurs, no clicks, no rubs, no gallops; symmetric distal pulses RESP: Normal chest excursion without splinting or tachypnea; breath sounds clear and equal bilaterally; no wheezes, no rhonchi, no rales, pulse oximetry 98% on room air not hypoxic ABD/GI: Normal bowel sounds; non-distended; soft, non-tender, no rebound, no guarding; no palpable organomegaly or masses. BACK: The back appears normal and is non-tender to palpation, there is no CVA tenderness EXT: Normal ROM in all joints; mild tenderness on palpation of the right calf. No visible swelling. Popliteal, dorsalis pedis and posterior tibial pulses are present in the right lower extremity. Sensation intact in the toes with capillary refill less than 3 seconds; no cyanosis, no effusions, no edema SKIN: Normal color for age and race; warm; dry; good turgor; no acute lesions noted NEURO: Moves all extremities equally; Motor and sensory function intact PSYCH: The patient's mood and manner are appropriate. Grooming and personal hygiene are appropriate. MDM: 35-year-old male who is on Xarelto currently presenting with right calf pain, had DVT in the left popliteal vein 2 weeks ago. Is still taking 2 pills of Xarelto daily. Will obtain Doppler study, if positive will plan to discuss with his passenger conductor TRAVEL OUTSIDE OF THE [place] IN LAST 30 DAYS: No - Related Data Allergies/Adverse Reactions: No Known Allergies Allergy (Verified 05/08/20 07:26) Home Medications: vitamins. xarelto. zoloft. zyrtec. protonix. gabapentin. restasis Past Medical History - Social History Smoking Status: Former Smoker Chew tobacco use (# tins/day): No Frequency of alcohol use: Rare Drug Abuse: None Family History: Reviewed & Not Pertinent, Other - Mother has a history of renal cell carcinoma Patient has homicidal ideation: No - Past Medical History Cardiac Medical History: Reports: Hx DVT, Hx Hypertension - Was taken off blood pressure medicine, Hx Pulmonary Embolism - Previously anticoagulated and this was stopped within the last 6 months by Denies: Hx Coronary Artery Disease, Hx Heart Attack Pulmonary Medical History: Reports: Hx Pneumonia - YRS AGO, Hx Sleep Apnea Denies: Hx Asthma, Hx COPD Comment Only: Hx Bronchitis - H/O FREQUENT BRONCHITIS Neurological Medical History: Denies: Hx Cerebrovascular Accident, Hx Seizures Endocrine Medical History: Denies: Hx Diabetes Mellitus Type 1, Hx Diabetes Mellitus Type 2, Hx Hyperthyroidism, Hx Hypothyroidism Renal/ Medical History: Denies: Hx Peritoneal Dialysis GI Medical History: Reports: Hx Gastroesophageal Reflux Disease. Denies: Hx Cirrhosis, Hx Hepatitis Musculoskeletal Medical History: Reports Hx Arthritis - R SHOULDER, Denies Hx Gout Skin Medical History: Denies Hx Eczema, Denies Hx Psoriasis Psychiatric Medical History: Reports: Hx Depression Infectious Medical History: Denies: Hx Hepatitis Past Surgical History: Reports: Hx Orthopedic Surgery - Bilateral carpal tunnel release, Other - sleeve gastrectomy - Immunizations Hx Diphtheria, Pertussis, Tetanus Vaccination: Yes Physical Exam - Vital signs Vitals: Temp Pulse Resp BP Pulse Ox 97.4 F 51 L 16 141/72 H 99 05/08/20 07:19 05/08/20 07:19 05/08/20 07:19 05/08/20 07:19 05/08/20 07:19 Course - Re-evaluation Re-evalutation: 05/08/20 09:00 Notified by nursing patient's heart rate is in the mid 40s, he has no chest pain shortness of breath. 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 05/08/20 09:22 EKG shows a sinus bradycardia with an atypical right bundle branch block. No other visible ectopy. Interpreted by emergency department physician. DE 212, QT 484, QTc 414. 05/08/20 10:29 Doppler study is negative for DVT patient's lab work does not show acute abnormalities. Will discharge home to follow-up with his passenger conductor - Vital Signs Vital signs: Temp Pulse Resp BP Pulse Ox 97.4 F 51 L 14 132/67 H 100 05/08/20 07:19 05/08/20 07:19 05/08/20 09:01 05/08/20 09:01 05/08/20 09:01 - Laboratory Result Diagrams: 05/08/20 08:30 05/08/20 08:30 Laboratory results interpreted by me: 05/08/20 08:30 BUN 21 H Discharge - Discharge Clinical Impression: Leg pain, right Condition: Stable Disposition: HOME, SELF-CARE Additional Instructions: Your Doppler study and lab work today were negative for acute findings. Follow-up with your passenger conductor for further evaluation continue to take the Xarelto as previously indicated Referrals: ORLANDO PINO MD [Primary Care Provider] - Follow up as needed ANTONIA PARHAM MD [ACTIVE STAFF] - Follow up as needed
[2020-05-08 08:41] LABS: ABSOLUTE BASOPHILS # (AUTO) 0.1 10^3/uL (0.0-0.2); ABSOLUTE EOSINOPHILS # (AUTO) 0.2 10^3/uL (0.0-0.6); ABSOLUTE LYMPHOCYTES (AUTO) 2.4 10^3/uL (0.5-4.7); ABSOLUTE MONOCYTES (AUTO) 0.6 10^3/uL (0.1-1.4); ABSOLUTE NEUT (AUTO) 4.5 10^3/uL (1.7-8.2); BASOPHILS % (AUTO) 0.9 % (0-2); HEMATOCRIT 39.5 % (37.9-51.0); HEMOGLOBIN 14.1 g/dL (13.5-17.0); LYMPHOCYTES % (AUTO) 30.9 % (13-45); MEAN CORPUSCULAR HEMOGLOBIN 30.5 pg (27.0-33.4); MEAN CORPUSCULAR HGB CONC 35.7 g/dL (32.0-36.0); MEAN CORPUSCULAR VOLUME 85 fl (80-97); MONOCYTES % (AUTO) 7.2 % (3-13); PLATELET COUNT 172 10^3/uL (150-450); RED BLOOD COUNT 4.63 10^6/uL (4.35-5.55); RED CELL DISTRIBUTION WIDTH 13.6 % (11.5-14.0); TOTAL CELLS COUNTED % (AUTO) 100 %; WHITE BLOOD COUNT 7.8 10^3/uL (4.0-10.5)
[2020-05-08 08:54] LABS: PROTHROMBIN TIME 14.4 SEC (11.4-15.4)
[2020-05-08 09:08] LABS: ALBUMIN 4.3 g/dL (3.5-5.0); ALKALINE PHOSPHATASE 78 U/L (38-126); ANION GAP 7 (5-19); ASPARTATE AMINO TRANSFERASE 31 U/L (17-59); BILIRUBIN,DIRECT 0.3 mg/dL (0.0-0.4); BILIRUBIN,TOTAL 0.8 mg/dL (0.2-1.3); BLOOD UREA NITROGEN 21 mg/dL (7-20); CALCIUM 9.5 mg/dL (8.4-10.2); CARBON DIOXIDE 26 mmol/L (22-30); CHLORIDE 105 mmol/L (98-107); GLUCOSE 92 mg/dL (75-110); POTASSIUM 4.5 mmol/L (3.6-5.0); TOTAL PROTEIN 6.6 g/dL (6.3-8.2)
[2020-05-08 10:35] VITALS: BP 115/66
--- NOTE | 2020-05-08 10:56 | RADIOLOGY REPORT (SQ) ---
EXAM DESCRIPTION: VENOUS UNILATERAL LOWER IMAGES COMPLETED DATE/TIME: 05/08/2020 10:47 am REASON FOR STUDY: DVT RLE COMPARISON: None. TECHNIQUE: Dynamic and static stewart scale and color images acquired of the right leg venous system. S elected spectral images acquired with additional compression and augmentation maneuvers. The contrala teral common femoral vein and saphenofemoral junction were also imaged. Images stored on PACS. LIMITATIONS: None. FINDINGS: COMMON FEMORAL: Normal phasicity, compression and augmentation. No visualized echogenic ma terial on stewart scale. No defects on color images. FEMORAL: Normal compression and augmentation. No visualized echogenic material on stewart scale. No defe cts on color images. POPLITEAL: Normal compression, augmentation. No visualized echogenic material on stewart scale. No defec ts on color images. CALF VESSELS: Normal compression, augmentation. No visualized echogenic material on stewart scale. No de fects on color images. GSV and SSV: Normal compression, augmentation. No visualized echogenic material on stewart scale. No def ects on color images. ANY DEEP VENOUS INSUFFICIENCY: No. ANY EVIDENCE OF POPLITEAL CYST: No. OTHER: No other significant finding. CONTRALATERAL COMMON FEMORAL VEIN AND SAPHENOFEMORAL JUNCTION: Normal phasicity, compression and augmentation. No visualized echogenic material on stewart scale. No de fects on color images. IMPRESSION: NO EVIDENCE DVT OR SVT IN THE RIGHT LEG. TECHNICAL DOCUMENTATION: JOB ID: [id number] 2010 [employer]- All Rights Reserved Reading location - IP/workstation name: [email or web address]
--- NOTE | 2020-05-08 14:45 | EKG REPORT ---
SEVERITY:- ABNORMAL ECG - SINUS BRADYCARDIA IVCD, CONSIDER ATYPICAL RBBB : Confirmed by: Roxann Carver MD 08-May-2020 14:43:53
== END 2020-05-08 10:39 | disposition home or self-care (01) ==
LOC: ER 07:15
DX: M79.604 Pain in right leg (principal); Z79.01 Long term (current) use of anticoagulants; Z86.718 Personal history of other venous thrombosis and embolism; Z86.711 Personal history of pulmonary embolism
CPT/HCPCS: 36415; 80053; 85025; 85610; 93005; 93010; 93971; 99285

== ENCOUNTER 2020-05-21 23:32 | Emergency (ER) | payer BC ==
[2020-05-21 23:50] VITALS: BP 122/64
== END 2020-05-22 00:37 | disposition left against medical advice (07) ==
LOC: ER 23:32
DX: Z53.21 Procedure and treatment not carried out due to patient leaving prior to being seen by health care provider (principal)

== ENCOUNTER 2020-08-22 03:17 | Emergency (ER) | payer BC ==
[2020-08-22 04:33] LABS: ABSOLUTE BASOPHILS # (AUTO) 0.1 10^3/uL (0.0-0.2); ABSOLUTE EOSINOPHILS # (AUTO) 0.2 10^3/uL (0.0-0.6); ABSOLUTE LYMPHOCYTES (AUTO) 1.4 10^3/uL (0.5-4.7); ABSOLUTE MONOCYTES (AUTO) 0.7 10^3/uL (0.1-1.4); ABSOLUTE NEUT (AUTO) 7.1 10^3/uL (1.7-8.2); BASOPHILS % (AUTO) 0.6 % (0-2); EOSINOPHILS % (AUTO) 1.9 % (0-6); HEMOGLOBIN 14.6 g/dL (13.5-17.0); LYMPHOCYTES % (AUTO) 14.9 % (13-45); MEAN CORPUSCULAR HEMOGLOBIN 29.1 pg (27.0-33.4); MEAN CORPUSCULAR VOLUME 86 fl (80-97); MONOCYTES % (AUTO) 7.1 % (3-13); PLATELET COUNT 183 10^3/uL (150-450); RED BLOOD COUNT 5.02 10^6/uL (4.35-5.55); RED CELL DISTRIBUTION WIDTH 13.4 % (11.5-14.0); SEGMENTED NEUTROPHILS % (AUTO) 75.5 % (42-78); TOTAL CELLS COUNTED % (AUTO) 100 %; WHITE BLOOD COUNT 9.4 10^3/uL (4.0-10.5)
[2020-08-22 04:39] LABS: APPEARANCE,URINE SLIGHTLY-CLOUDY; BILIRUBIN,URINE NEGATIVE (NEGATIVE); COLOR,URINE YELLOW; GLUCOSE, URINE NEGATIVE (NEGATIVE); KETONES,URINE NEGATIVE (NEGATIVE); LEUKOCYTE ESTERASE,URINE NEGATIVE (NEGATIVE); NITRITE,URINE NEGATIVE (NEGATIVE); PROTEIN,URINE NEGATIVE (NEGATIVE); URINE SPECIFIC GRAVITY 1.023
[2020-08-22 04:51] LABS: ALBUMIN 4.7 g/dL (3.5-5.0); ALKALINE PHOSPHATASE 88 U/L (38-126); ANION GAP 7 (5-19); ASPARTATE AMINO TRANSFERASE 101 U/L (17-59); BILIRUBIN,DIRECT 0.7 mg/dL (0.0-0.4); BILIRUBIN,TOTAL 1.3 mg/dL (0.2-1.3); BLOOD UREA NITROGEN 21 mg/dL (7-20); CALCIUM 9.8 mg/dL (8.4-10.2); CARBON DIOXIDE 31 mmol/L (22-30); CHLORIDE 104 mmol/L (98-107); GLUCOSE 113 mg/dL (75-110); POTASSIUM 4.9 mmol/L (3.6-5.0); TOTAL PROTEIN 7.5 g/dL (6.3-8.2)
[2020-08-22] MEDS ORDERED: ONDANSETRON HCL INJ/PF 4 MG/2 ML SDV IV ONE (09:57)
[2020-08-22] MEDS ORDERED: MORPHINE SULFATE 10 MG/ML INJ IV ONE (09:57)
--- NOTE | 2020-08-22 10:00 | ER Document Report ---
ED GI/ - General Chief Complaint: Abdominal Pain Stated Complaint: ABDOMINAL PAIN Time Seen by Provider: 08/22/20 09:41 Primary Care Provider: ORLANDO PINO MD [Primary Care Provider] - Follow up as needed Notes: CHIEF COMPLAINT: Right upper quadrant pain since 11 last night HPI: 35-year-old male presenting for right upper quadrant pain fairly constant since 11:00 last night, varying in intensity with nausea. No lower abdominal pain. Patient reports history of gastric sleeve at [facility] in 2019. Patient has had normal bowel movements over the last several days no fevers. ROS: See HPI - all other systems were reviewed and are otherwise negative Constitutional: no fever Eyes: no drainage, no blurred vision ENT: no runny nose, no sore throat Cardiovascular: no chest pain Resp: no SOB, no cough GI: no vomiting, no diarrhea, + abdominal pain, positive nausea : no dysuria Integumentary: no rash Allergy: no hives Musculoskeletal: no extremity pain or swelling Neurological: no numbness/tingling, no weakness MEDICATIONS: I agree with the patient medications as charted by the RN. ALLERGIES: I agree with the allergies as charted by the RN. PAST MEDICAL HISTORY/PAST SURGICAL HISTORY: Reviewed and agree as charted by RN. SOCIAL HISTORY: Reviewed and agree as charted by RN. FAMILY HISTORY: No significant familial comorbid conditions directly related to patient complaint EXAM: Reviewed vital signs as charted by RN. CONSTITUTIONAL: Alert and oriented and responds appropriately to questions. Well-appearing; well-nourished HEAD: Normocephalic; atraumatic EYES: Conjunctivae clear, sclerae non-icteric ENT: normal nose; no rhinorrhea; moist mucous membranes NECK: Supple without meningismus CARD: RRR; no murmurs, no clicks, no rubs, no gallops; symmetric distal pulses RESP: Normal chest excursion without splinting or tachypnea; breath sounds clear and equal bilaterally; no wheezes, no rhonchi, no rales, pulse oximetry ABD/GI: Obese, normal bowel sounds; non-distended; soft, mild tenderness to the right upper quadrant right lateral upper flank on palpation. No visible rash. There is no right lower quadrant pain on palpation, no rebound, no guarding; no palpable organomegaly or masses. BACK: The back appears normal and is non-tender to palpation, there is no CVA tenderness EXT: Normal ROM in all joints; non-tender to palpation; no cyanosis, no effusions, no edema SKIN: Normal color for age and race; warm; dry; good turgor; no acute lesions noted NEURO: Moves all extremities equally; Motor and sensory function intact PSYCH: The patient's mood and manner are appropriate. Grooming and personal hygiene are appropriate. MDM: 35-year-old male right upper quadrant pain history of gastric sleeve in 2019 at [facility]. Mild tenderness in the right upper quadrant will obtain right upper quadrant ultrasound to evaluate for cholelithiasis. He states when he had a sleeve done they did not take his gallbladder out, he did not have any known stones at that time TRAVEL OUTSIDE OF THE [place] IN LAST 30 DAYS: No - Related Data Allergies/Adverse Reactions: No Known Allergies Allergy (Verified 08/22/20 09:38) Home Medications: protonix, zoloft, zyrtec, xaralto, Past Medical History - Social History Smoking Status: Former Smoker Family History: Reviewed & Not Pertinent, Other - Mother has a history of renal cell carcinoma - Past Medical History Cardiac Medical History: Reports: Hx DVT, Hx Hypertension - Was taken off blood pressure medicine, Hx Pulmonary Embolism - Previously anticoagulated and this was stopped within the last 6 months by Denies: Hx Coronary Artery Disease, Hx Heart Attack Pulmonary Medical History: Reports: Hx Bronchitis - H/O FREQUENT BRONCHITIS, Hx Pneumonia - YRS AGO, Hx Sleep Apnea Denies: Hx Asthma, Hx COPD Neurological Medical History: Denies: Hx Cerebrovascular Accident, Hx Seizures Endocrine Medical History: Reports: Hx Diabetes Mellitus Type 2 - no meds. Denies: Hx Diabetes Mellitus Type 1, Hx Hyperthyroidism, Hx Hypothyroidism Renal/ Medical History: Reports: Hx Kidney Stones. Denies: Hx Peritoneal Dialysis GI Medical History: Reports: Hx Gastroesophageal Reflux Disease. Denies: Hx Cirrhosis, Hx Hepatitis Musculoskeletal Medical History: Reports Hx Arthritis - R SHOULDER, Denies Hx Gout Skin Medical History: Denies Hx Eczema, Denies Hx Psoriasis Psychiatric Medical History: Reports: Hx Depression Infectious Medical History: Denies: Hx Hepatitis Past Surgical History: Reports: Hx Abdominal Surgery - gastric sleeve, Hx Orthopedic Surgery - Bilateral carpal tunnel release, Other - sleeve gastrectomy - Immunizations Hx Diphtheria, Pertussis, Tetanus Vaccination: Yes Physical Exam - Vital signs Vitals: Temp Pulse Resp BP Pulse Ox 97.5 F 51 L 18 139/73 H 100 08/22/20 03:38 08/22/20 03:38 08/22/20 03:38 08/22/20 03:38 08/22/20 03:38 Course - Re-evaluation Re-evalutation: 08/22/20 11:49 Patient is feeling better after pain medication and IV fluids. He is noted to have cholelithiasis on ultrasound imaging. No evidence of cholecystitis. Lab work otherwise unremarkable. Patient comfortable with plan for discharge to follow-up with surgery, he indicates he may go back to [facility] where he had his gastric sleeve done. He was encouraged to call them today to schedule close follow-up - Vital Signs Vital signs: Temp Pulse Resp BP Pulse Ox 97.5 F 51 L 18 139/73 H 100 08/22/20 03:38 08/22/20 03:38 08/22/20 03:38 08/22/20 03:38 08/22/20 03:38 - Laboratory Results Result Diagrams: 08/22/20 04:14 08/22/20 04:14 Laboratory Results Interpreted: 08/22/20 08/22/20 04:14 04:14 Carbon Dioxide 31 H BUN 21 H Glucose 113 H Direct Bilirubin 0.7 H AST 101 H ALT 60 H Urine Urobilinogen 4.0 H Critical Laboratory Results Reviewed: No Critical Results - Radiology Results Critical Radiology Results Reviewed: No Critical Results Discharge - Discharge Clinical Impression: Abdominal pain, right upper quadrant Cholelithiasis Qualifiers: Cholelithiasis location: gallbladder Cholecystitis presence: without cholecystitis Biliary obstruction: without biliary obstruction Qualified Code(s): K80.20 - Calculus of gallbladder without cholecystitis without obstruction Condition: Stable Disposition: HOME, SELF-CARE Instructions: Oral Narcotic Medication ([facility]), Gallbladder Disease ([facility]) Additional Instructions: Low-fat low spice diet. Medications for pain as prescribed no driving if taking narcotics for pain. Follow-up with surgery for further evaluation and management of the gallstones noted in your gallbladder. If pain becomes worse or unrelenting return for reevaluation Prescriptions: Oxycodone HCl/Acetaminophen [Percocet 5-325 mg Tablet] 1 tab PO Q4H PRN #15 tab PRN Reason: Ondansetron [Zofran Odt 4 mg Tablet] 1 - 2 tab PO Q4H PRN #15 tab.rapdis PRN Reason: For Nausea/Vomiting Referrals: ORLANDO PINO MD [Primary Care Provider] - Follow up as needed FRANCESCA MAZARIEGOS MD [ACTIVE STAFF] - Follow up as needed
[2020-08-22] MEDS ORDERED: NORMAL SALINE 1000 ML 1,000 ML IV ONE (10:06)
--- NOTE | 2020-08-22 11:20 | RADIOLOGY REPORT (SQ) ---
EXAM DESCRIPTION: U/S ABDOMEN LIMITED W/O DOP IMAGES COMPLETED DATE/TIME: 08/22/2020 10:57 am REASON FOR STUDY: RUQ pain, hx gastric sleeve COMPARISON: None. TECHNIQUE: Dynamic and static grayscale images acquired of the abdomen and recorded on PACS. Additio nal selected color Doppler and spectral images recorded. LIMITATIONS: None. FINDINGS: PANCREAS: No masses. Visualized pancreatic duct normal caliber. LIVER: Normal size Mild fatty infiltration. No focal masses. LIVER VASCULATURE: Normal directional flow of the main portal vein and hepatic veins. GALLBLADDER: Gallstone(s). No pericholecystic fluid. No wall thickening. ULTRASOUND-DETECTED CROWE'S SIGN: Negative. INTRAHEPATIC DUCTS AND COMMON DUCT: CBD and intrahepatic ducts normal caliber. No filling defects. INFERIOR VENA CAVA: Normal flow. AORTA: No aneurysm. RIGHT KIDNEY: Normal size. Normal echogenicity. No solid or suspicious masses. No hydronephros is. No calcifications. PERITONEAL AND RIGHT PLEURAL SPACE: No ascites or effusions. OTHER: No other significant findings. IMPRESSION: Cholelithiasis. No evidence of acute cholecystitis. TECHNICAL DOCUMENTATION: JOB ID: [id number] [employer]- All Rights Reserved Reading location - IP/workstation name: [email or web address]
[2020-08-22 12:44] VITALS: BP 117/59
== END 2020-08-22 12:42 | disposition home or self-care (01) ==
LOC: ER 03:17
DX: K80.20 Calculus of gallbladder without cholecystitis without obstruction (principal); I10 Essential (primary) hypertension; E11.9 Type 2 diabetes mellitus without complications; K21.9 Gastro-esophageal reflux disease without esophagitis; F32.9 Major depressive disorder, single episode, unspecified; Z79.899 Other long term (current) drug therapy; Z79.01 Long term (current) use of anticoagulants; Z98.84 Bariatric surgery status; Z87.891 Personal history of nicotine dependence; Z86.711 Personal history of pulmonary embolism; Z86.718 Personal history of other venous thrombosis and embolism
CPT/HCPCS: 99285; 96361; 96374; 96375; 36415; 83690; 85025; 80053; 81001; 76705; J2270; J2405; J7030